=== PATIENT | female | born 1950 | race Caucasian/White ===

== ENCOUNTER 2017-01-13 17:47 | Inpatient (IN) ==
[2017-01-13] MEDS ORDERED: ONDANSETRON 4 MG/2 ML VIAL IV STA (20:17)
[2017-01-13] MEDS ORDERED: MORPHINE 2 MG/1 ML SYRINGE IV STA (20:17)
--- NOTE | 2017-01-13 20:24 | Emergency Department Note ---
Lazaro Jason Brittany, am scribing for, and in the presence of, Cristhian Orourke MD 18:58. Sharad Jason William S., MD, personally performed the services described in this documentation, ascribed by Mayra Willis in my presence, and it is both accurate and complete . Arrival - Arrival Chief Complaint: Shortness of Breath Stated Complaint: transfer from [facility] ED Nursing Triage Note: transferred from [facility] for further evaluation of lung mass with pneumonia. Mode of Arrival: Stretcher Limitations: No Limitations Source: Patient - History of Present Illness HPI Narrative: This is a 66 y/o white female, who presents to the ED by EMS for further evaluation of lung mass with pneumonia. She was transferred from [facility] for further evualtion. She states she was seen in [facility] for a cough and fever. She states she has been following up with Dr. Dunn for the past 2- 3 years. She reports she was seen here on 01/09 for the lung mass and was told it has not increased in size. She states she had a Chest Xray which showed obstructive pneumonia. She reports a fever and cough but denies vomiting. Pt has no other complaints/pain in the ED at this time. Pt has a PMHx of NIDDM, RA , HTN, Depression, seizures, dyslipidemia, thyroid disorder, COPD, pneumonia, asthma, bronchitis, OA, back/neck problems, and ovarian cysts. Pt has had an eye surgery, abd surgery, breast surgery, colonoscopy, EGD, tonsilectomy, gynecological Hx, hysterectomy, and tubal ligation. Pt has a family medical Hx of cancer, diabetes, and HTN. Pt is a former smoker. Consistency: constant Severity: moderate Allergies/Adverse Reactions: Allergies Allergy/AdvReac Type Severity Reaction Status Date / Time No Known Allergies Allergy Verified 04/19/15 07:14 Home Medications: Home Medications Medication Instructions Recorded Confirmed Type Amitriptyline HCl 50 mg PO BEDTIME 04/14/15 10/22/15 History Ferrous Sulfate [Iron] 325 mg PO TID 04/14/15 10/22/15 History Fluoxetine HCl 40 mg PO DAILY 04/14/15 10/22/15 History Furosemide Tab [Lasix Tab] 10 mg PO DAILY 04/14/15 10/22/15 History Hydrocodone/Acetaminophen 1 each PO PRN PRN 04/14/15 10/22/15 History [Hydrocodon-Acetaminophn 10-325] Ipratropium/Albuterol Inhaler 1 puff INH QID 04/14/15 10/22/15 History [Combivent Respimat Inhaler] Levothyroxine Tab [Synthroid Tab] 75 mcg PO DAILY 04/14/15 10/22/15 History Lovastatin 20 mg PO DAILY 04/14/15 10/22/15 History clonazePAM [Clonazepam] 1 mg PO DAILY 04/14/15 10/22/15 History glipiZIDE [Glipizide] 5 mg PO DAILY 04/14/15 10/22/15 History hydroCHLOROthiazide 12.5 mg PO DAILY 04/14/15 10/22/15 History [Hydrochlorothiazide] lamoTRIgine [Lamictal Xr] 50 mg PO BID 04/14/15 10/22/15 History Review of System - Review of System 12 point system: reviewed and no additional remarkable complaints except as stated - Review of System Constitutional: Present: fever Respiratory: Present: cough Gastrointestinal: Absent: vomiting Medical,Surgical,& Family Hx - Medical History Cardio: History of: Hypertension Psychological: History of: Depression Neurology: History of: Seizures Endocrine: History of: Diabetes Mellitus (NIDDM), Dyslipidemia, Thyroid Disorder Rheumatology: History of;: Rheumatoid Arthritis Respiratory: History of: Asthma, Bronchitis, COPD, Pneumonia, Respiratory Problems (broch prevoiusly) Musculoskeletal: History of: Back/Neck Problems (back pains), Osteoporosis Hematology: History of: Anemia, Bleeding Problems Reproductive: History of: Ovarian Cysts - Surgical History HEENT Surgeries: Surgical HX of: Eye Surgery (bilateral catarct surgery), Tonsilectomy & Adenoidectomy Abdominal Surgeries: Surgical HX of: Abdominal Surgery, Colonoscopy, EGD Reproductive Surgeries: Surgical HX of;: Breast Surgery (2 right breast biospies ), Gynecologic Surgery, Hysterectomy, Tubal Ligation - Family History Family History: Reports;: Family Cancer (2 sister), Family Diabetes (FATHER AND SISTER), Family Hypertension (FATHER) - Social History Smoking Status: Former smoker Exam Vital Signs: Vital Signs Temperature 97.6 F 01/13/17 18:41 Pulse Rate 90 01/13/17 18:41 Respiratory Rate 20 04/15/17 18:41 Blood Pressure 168/85 04/15/17 18:41 O2 Sat by Pulse Oximetry 97 01/13/17 17:50 Course - Reevaluation(s) Reevaluation #1: Patient remains stable at this time. She is given pain medication for complaints of pain in her chest for the pneumonia was located. She does relate that blood cultures were drawn at the other facility. She has not been hospitalized in over 6 months. Patient will be admitted to Dr. Bonner on the medicine service chart from the other facility is reviewed and all the lab data was noted on the transfer paperwork and therefore is not repeated at this time Time: 20:05 Disposition Clinical Impression: Community acquired pneumonia Case discussed with: patient Disposition: Still a Patient Condition: Stable Time of Disposition: 20:24
[2017-01-13] MEDS ORDERED: DEXTROSE 50% 25 GM/50 ML VIAL IV PRN (20:56)
[2017-01-13] MEDS ORDERED: GLUCAGON 1 MG VIAL IM PRN (20:56)
--- NOTE | 2017-01-13 21:10 | Hospitalist History & Physical ---
Assessment and Plan - Time spent with patient Time spent with patient: Greater than 30 minutes (1) Pneumonia Status: Acute Assessment and plan: We will repeat chest x-ray. We will continue Levaquin. Will consult pulmonary for further evaluation. Current Visit: Yes (2) Lung mass Status: Acute Assessment and plan: We will consult pulmonary. Patient does not exactly know the results of her tests and would like further clarification. Current Visit: Yes (3) Diabetes mellitus Status: Acute Assessment and plan: Continue home medications. Current Visit: Yes (4) Seizure disorder Status: Acute Assessment and plan: Continue home medications. Current Visit: Yes (5) COPD (chronic obstructive pulmonary disease) Status: Acute Assessment and plan: Continue antibiotics breathing treatments and Solu-Medrol. Current Visit: Yes (6) CHF (congestive heart failure) Status: Acute Assessment and plan: Stable continue home medications. Current Visit: Yes History of Present Illness Chief complaint: Shortness of breath and fever History of present illness: Ms. Fam is a 66 year old female with a medical history of lung mass with prior biopsy, diabetes, CHF, COPD was transferred from an outside facility for evaluation postobstructive pneumonia. Patient presented with shortness of breath cough productive in nature and fever which she had been experiencing for 3 nights. She states she presented to [facility] where she was found to have right-sided pneumonia and then transferred to [facility] for further evaluation. White blood cell count at the outside hospital was 12.2. Creatinine was 0.8. She is administered DuoNeb's Levaquin and Solu-Medrol. Currently she has no complaints and appears very comfortable. Patient had an evaluation of a lung mass previously with pathology report indicating only inflammatory cells. PET scan revealed no uptake at the area of the mass. Home Medications Medication Instructions Recorded Confirmed Type Amitriptyline HCl 50 mg PO BEDTIME 04/14/15 10/22/15 History Ferrous Sulfate [Iron] 325 mg PO TID 04/14/15 10/22/15 History Fluoxetine HCl 40 mg PO DAILY 04/14/15 10/22/15 History Furosemide Tab [Lasix Tab] 10 mg PO DAILY 04/14/15 10/22/15 History Hydrocodone/Acetaminophen 1 each PO PRN PRN 04/14/15 10/22/15 History [Hydrocodon-Acetaminophn 10-325] Ipratropium/Albuterol Inhaler 1 puff INH QID 04/14/15 10/22/15 History [Combivent Respimat Inhaler] Levothyroxine Tab [Synthroid Tab] 75 mcg PO DAILY 04/14/15 10/22/15 History Lovastatin 20 mg PO DAILY 04/14/15 10/22/15 History clonazePAM [Clonazepam] 1 mg PO DAILY 04/14/15 10/22/15 History glipiZIDE [Glipizide] 5 mg PO DAILY 04/14/15 10/22/15 History hydroCHLOROthiazide 12.5 mg PO DAILY 04/14/15 10/22/15 History [Hydrochlorothiazide] lamoTRIgine [Lamictal Xr] 50 mg PO BID 04/14/15 10/22/15 History Allergies Allergy/AdvReac Type Severity Reaction Status Date / Time No Known Allergies Allergy Verified 04/19/15 07:14 Medical,Surgical,& Family Hx - Medical History Cardio: History of: Hypertension Psychological: History of: Depression Neurology: History of: Seizures Endocrine: History of: Diabetes Mellitus (NIDDM), Dyslipidemia, Thyroid Disorder Rheumatology: History of;: Rheumatoid Arthritis Respiratory: History of: Asthma, Bronchitis, COPD, Pneumonia, Respiratory Problems (broch prevoiusly) Musculoskeletal: History of: Back/Neck Problems (back pains), Osteoporosis Hematology: History of: Anemia, Bleeding Problems Reproductive: History of: Ovarian Cysts - Surgical History HEENT Surgeries: Surgical HX of: Eye Surgery (bilateral catarct surgery), Tonsilectomy & Adenoidectomy Abdominal Surgeries: Surgical HX of: Abdominal Surgery, Colonoscopy, EGD Reproductive Surgeries: Surgical HX of;: Breast Surgery (2 right breast biospies ), Gynecologic Surgery, Hysterectomy, Tubal Ligation - Family History Family History: Reports;: Family Cancer (2 sister), Family Diabetes (FATHER AND SISTER), Family Hypertension (FATHER) - Social History Smoking Status: Former smoker 12 point system: reviewed and no additional remarkable complaints except as stated Exam - Constitutional Vitals: Period Temp Pulse Resp BP Sys/Guaman Pulse Ox Last 24 Hr 97.6 F-97.6 F 85-90 18-20 147-168/66-85 97-99 General appearance: normal weight, no acute distress - Head Head exam: Present: normal inspection, normocephalic, atraumatic - Eye Eye exam: Present: EOMI Pupils: Present: ERIK - ENT ENT exam: Present: normal exam - Neck Neck exam: Present: normal inspection - Respiratory Respiratory exam: Present: clear to auscultation bilaterally. Absent: accessory muscle use, prolonged expiratory phase, wheezes - Cardiovascular Cardiovascular exam: Present: regular rate and rhythm. Absent: bradycardia, carotid bruit, irregular rhythm, systolic murmur - GI/Abdominal GI/Abdominal exam: Present: normal bowel sounds. Absent: ascites, distended, hypoactive bowel sounds, tenderness - Extremities Exam Extremities exam: Present: normal inspection Results - Labs Lab Results: I have reviewed the past 24 hour labs
--- NOTE | 2017-01-13 21:17 | XRay Report ---
Portable chest Date: 01/13/2017 Clinical history: Shortness of breath Comparison: 01/13/2017, 04/19/2015 Technique: Portable AP sitting chest Findings: The heart is borderline in size with calcification in the aortic knob. Residual scarring with progressive atelectasis/infiltration in the right lower lung zone. Pleural thickening laterally in the right upper lobe with adjacent small nodular densities. Residual right hilar prominence with degenerative changes. Impression: Chronic scarring with residual pleural thickening laterally in the right upper lobe location. Persistent ill-defined densities. Progressive atelectasis/infiltration in the right lower lung zone with residual right hilar prominence. Follow-up x-ray recommended. PROCEDURE INTERPRETED AT [facility] DEPARTMENT OF RADIOLOGY Final Report Signed by: Dr. Malgorzata Canales
[2017-01-13] MEDS: methylPREDNISolone SOD SUC 40 MG/1 ML VIAL IV SCH (23:19)
[2017-01-13] MEDS: AMITRIPTYLINE 50 MG TABLET PO SCH (23:19)
[2017-01-13] MEDS: FERROUS SULFATE 325 MG TABLET PO SCH (23:19)
[2017-01-13] MEDS: INSULIN LISPRO 100 UNIT/ML SUBCUT SCH (23:19)
[2017-01-14] MEDS: LEVOTHYROXINE 75 MCG TABLET PO SCH (06:32)
[2017-01-14] MEDS: methylPREDNISolone SOD SUC 40 MG/1 ML VIAL IV SCH ×3 (06:32→21:28)
[2017-01-14 07:34] LABS: Basophils % 0.2 % (0.0-0.8); Hematocrit 34.3 VOL% (35.7-47.0); Hemoglobin 10.5 GM/DL (12.0-16.0); Immature Granulocytes % 0.5 %; Immature Granulocytes Absolute 0.06 #; Lymphocytes # 0.7 10*3/uL (1.4-4.0); Lymphocytes % 6.2 % (21.3-54.2); Mean Corpuscular HGB Conc 30.6 GM/DL (32-36); Mean Corpuscular Hemoglobin 24 PG (27-34); Mean Corpuscular Volume 76.9 FL (87-102); Mean Platelet Volume 11.1 FL (9.6-12.0); Monocytes # 0.7 10*3/uL (0.11-0.8); Monocytes % 6.4 % (1.7-12.7); Neutrophils # 9.7 10*3/uL (1.4-7.4); Neutrophils % 86.7 % (38.7-73.9); Platelet Count 168 T/CUMM (130-400); Red Blood Count 4.46 MC/CUMM (3.8-5.5); Red Cell Distribution Width 15.9 % (9.3-17.3); White Blood Count 11.1 T/CUMM (4-12)
[2017-01-14 08:06] LABS: Albumin 3.3 G/DL (3.4-5.0); Bilirubin,Total 0.7 MG/DL (0.2-1.0); Osmolality,Calculated 267.2 MOS/KG (273-304); Potassium 3.6 MMOL/L (3.5-5.1); Total Protein 6.3 G/DL (6.4-8.3)
[2017-01-14 08:26] LABS: Hypochromasia Slight
[2017-01-14] MEDS ORDERED: clonazePAM 0.5 MG TABLET PO SCH (09:00)
[2017-01-14] MEDS ORDERED: LOVASTATIN 20 MG TABLET PO SCH (09:00)
--- NOTE | 2017-01-14 09:33 | XRay Report ---
Portable chest Date: 01/14/2017 Clinical history: Shortness of breath Comparison: 01/13/2017 Technique: Portable AP sitting chest Findings: The heart is minimally enlarged with calcification in the aortic knob. Chronic scarring with residual pleural thickening laterally in the right upper lung zone. Persistent ill-defined densities are noted especially in the right upper lobe and the lower lung zones. Minimally reduced parenchymal findings at the right lung base. Stable mediastinum and osseous structures. Impression: Chronic scarring with residual pleural thickening laterally in the right upper lobe location. Minimally reduced atelectasis/infiltration/edema at the right lung base. Persistent ill-defined indeterminate densities and follow-up is chest x-ray is recommended. PROCEDURE INTERPRETED AT [facility] DEPARTMENT OF RADIOLOGY Final Report Signed by: Dr. Malgorzata Canales
[2017-01-14] MEDS: FERROUS SULFATE 325 MG TABLET PO SCH ×3 (09:39→21:28)
[2017-01-14] MEDS: FUROSEMIDE 20 MG TABLET PO SCH (09:40)
[2017-01-14] MEDS: glipiZIDE 5 MG TABLET PO SCH (09:40)
[2017-01-14] MEDS: LEVOFLOXACIN INJ 750 MG in PREMIX 1 EACH IV SCH (09:46)
--- NOTE | 2017-01-14 10:12 | Hospitalist Progress Note ---
Assessment and Plan - Time spent with patient Time spent with patient: Greater than 30 minutes (1) Pneumonia Status: Acute Assessment and plan: Appreciate Pulms assistance. Current Visit: Yes (2) Lung mass Status: Acute Assessment and plan: We will consult pulmonary. Patient does not exactly know the results of her tests and would like further clarification. Current Visit: Yes (3) Diabetes mellitus Status: Acute Assessment and plan: Continue home medications. Current Visit: Yes (4) Seizure disorder Status: Acute Assessment and plan: Continue home medications. Current Visit: Yes (5) COPD (chronic obstructive pulmonary disease) Status: Acute Assessment and plan: Continue antibiotics breathing treatments and Solu-Medrol. Current Visit: Yes (6) CHF (congestive heart failure) Status: Acute Assessment and plan: Stable continue home medications. Current Visit: Yes (7) Epigastric pain Status: Acute Assessment and plan: RUQ, amylase, lipase, cons GI. Current Visit: Yes Hospitalist: Subjective Interval history: Complains of early satiety. Has epigastric pain that radiates to the back. Exam - Constitutional Vitals: Period Temp Pulse Resp BP Sys/Guaman Pulse Ox Last 24 Hr 97.5 F-99.2 F 72-83 18-22 148-167/73-81 97-100 General appearance: no acute distress - Head Head exam: Present: normocephalic, atraumatic - Eye Eye exam: Present: EOMI Pupils: Present: ERIK - ENT ENT exam: Present: normal exam - Neck Neck exam: Present: normal inspection - Respiratory Respiratory exam: Present: wheezes. Absent: rhonchi - Cardiovascular Cardiovascular exam: Present: regular rate and rhythm. Absent: gallop, rubs, systolic murmur - GI/Abdominal GI/Abdominal exam: Present: normal bowel sounds, soft. Absent: distended, firm , guarding, tenderness, rebound - Extremities Exam Extremities exam: Present: normal inspection. Absent: calf tenderness, edema Results - Labs CBC & BMP: 01/14/17 06:19 01/14/17 06:19 Lab Results: I have reviewed the past 24 hour labs
--- NOTE | 2017-01-14 10:15 | Pulmonology Consult Note ---
Assessment and Plan (1) COPD (chronic obstructive pulmonary disease) Status: Acute Assessment and plan: Patient appears to be having a mild COPD exacerbation. I do not think her radiographic findings are consistent with pneumonia. She likely has bronchitis and a slight exacerbation. Would start on steroids and duonebs and consider an antibiotic like Doxycycline for 7 days. This may have been brought on by a viral illness vs aspiration from her hernia Current Visit: Yes (2) Mediastinal lymphadenopathy Status: Acute Assessment and plan: Patient with enlarged LN, she underwent a bronchoscopy 2 years which was benign. There is no reported growth in the last 2 years. If there is any concern over this, it would be best accessed by EBUS which is not available at this facility. Dr Dunn will return tomorrow and can follow up as needed Current Visit: Yes (3) Hiatal hernia Status: Acute Assessment and plan: Patient with notable hiatal hernia on CT scan. She appears to be quite symptomatic from this given her report of trouble swallowing and early satiety. Needs to have Gi consult (can be done as outpatient) and repeated EGD. If she is having microaspiration from reflux secondary to this, it will make her COPD worse. Should be on a PPI in the meantime. Current Visit: Yes History of Present Illness History of present illness: Ms. Fam is a 66 year old female who is followed by Dr Dunn (pulmonary) for enlarged mediastinal LN. She reports that she saw Dr Dunn on the and he told her she had 2 years of stability on her CT scan and didn't need to follow up on this anymore. She also reports having COPD. A few days after that she developed fever, and went to the ER at her local hospital. They transferred her here for evaluation of the previous mentioned LN (which is sounds like was interpreted as a mass?). Otherwise patient endorses having some productive cough the last 2 days as well. Patient also complains of trouble swallowing with foods, liquids and pills. She endorses early satiety as well. She is aware she has a hiatal hernia, and was followed by a GI doctor in [facility] a few years ago. Her last EGD was 2 years ago Home Medications Medication Instructions Recorded Confirmed Type Amitriptyline HCl 50 mg PO BEDTIME 04/14/15 01/13/17 History Hydrocodone/Acetaminophen 1 each PO PRN PRN 04/14/15 01/13/17 History [Hydrocodon-Acetaminophn 10-325] Ipratropium/Albuterol Inhaler 1 puff INH QID 04/14/15 01/13/17 History [Combivent Respimat Inhaler] Levothyroxine Tab [Synthroid Tab] 100 mcg PO DAILY 04/14/15 01/13/17 History Lovastatin 20 mg PO BEDTIME 04/14/15 01/13/17 History glipiZIDE [Glipizide] 5 mg PO DAILY 04/14/15 01/13/17 History lamoTRIgine [Lamictal Xr] 50 mg PO BID 04/14/15 01/13/17 History Fluoxetine HCl [Prozac] 40 mg PO DAILY 01/13/17 01/13/17 History Lurasidone [Latuda] 40 mg PO BEDTIME 01/13/17 01/13/17 History Phenytoin ER Cap [Dilantin Cap] 100 mg PO TID 01/13/17 01/13/17 History Potassium Chloride [Klor-Con 10 meq PO BID 01/13/17 01/13/17 History Sprinkle] Topiramate [Topamax] 25 mg PO BEDTIME 01/13/17 01/13/17 History hydroCHLOROthiazide 25 mg PO DAILY 01/13/17 01/13/17 History [Hydrochlorothiazide] clonazePAM [Klonopin] 1 mg PO BEDTIME 01/14/17 01/14/17 History Allergies Allergy/AdvReac Type Severity Reaction Status Date / Time No Known Allergies Allergy Verified 04/19/15 07:14 Review of systems: Negative for 12 systems except her HPI Exam (Pulmonay) H&P - Constitutional Vitals: Period Temp Pulse Resp BP Sys/Guaman Pulse Ox Last 24 Hr 97.5 F-99.2 F 72-83 18-22 148-167/73-81 97-100 General appearance: no acute distress, cachectic - Head Head exam: Present: normal inspection - Respiratory Respiratory exam: Present: wheezes. Absent: accessory muscle use - Cardiovascular Cardiovascular exam: Present: regular rate and rhythm - GI/Abdominal GI/Abdominal exam: Present: normal bowel sounds Medical,Surgical,& Family Hx - Medical History Cardio: History of: Hypertension Psychological: History of: Depression Neurology: History of: Seizures HEENT: Comment Only: HEENT Problems (hx sinus surg.) Endocrine: History of: Diabetes Mellitus (NIDDM), Dyslipidemia, Thyroid Disorder Rheumatology: History of;: Rheumatoid Arthritis Respiratory: History of: Asthma, Bronchitis, COPD, Pneumonia, Respiratory Problems (bronch prevoiusly) Gastrointestinal: History of: Diverticulitis/ Diverticulosis, Hemorrhoids Musculoskeletal: History of: Back/Neck Problems (back pains), Osteoporosis Hematology: History of: Anemia, Bleeding Problems Reproductive: History of: Ovarian Cysts - Surgical History HEENT Surgeries: Surgical HX of: Eye Surgery (bilateral catarct surgery), Tonsilectomy & Adenoidectomy Abdominal Surgeries: Surgical HX of: Abdominal Surgery, Colonoscopy, EGD Reproductive Surgeries: Surgical HX of;: Breast Surgery (2 right breast biospies ), Gynecologic Surgery, Hysterectomy, Tubal Ligation - Family History Family History: Reports;: Family Cancer (2 sister), Family Diabetes (FATHER AND SISTER), Family Hypertension (FATHER) - Social History Smoking Status: Former smoker Frequency of Alcohol Use: None Type of Drug Use: None Results - Labs CBC & BMP: 01/14/17 06:19 01/14/17 06:19 Lab Results: I have reviewed the past 24 hour labs - Diagnostic Findings Procedure: Chest x-ray: image reviewed by me, CT - chest: image reviewed by me
[2017-01-14] MEDS: INSULIN LISPRO 100 UNIT/ML SUBCUT SCH ×3 (14:32→19:34)
[2017-01-14] MEDS: lamoTRIgine 25 MG TABLET PO SCH (21:28)
[2017-01-14] MEDS: AMITRIPTYLINE 50 MG TABLET PO SCH (21:28)
[2017-01-14] MEDS: PHENYTOIN ER 100 MG CAPSULE PO SCH (21:28)
[2017-01-14] MEDS: POTASSIUM CHLORIDE 10 MEQ TABLET PO SCH (21:28)
[2017-01-14] MEDS: clonazePAM 0.5 MG TABLET PO SCH (21:28)
[2017-01-14] MEDS: LOVASTATIN 20 MG TABLET PO SCH (21:28)
[2017-01-15] MEDS: LEVOTHYROXINE 75 MCG TABLET PO SCH (06:48)
[2017-01-15] MEDS: methylPREDNISolone SOD SUC 40 MG/1 ML VIAL IV SCH ×3 (07:01→23:20)
[2017-01-15] MEDS: INSULIN LISPRO 100 UNIT/ML SUBCUT SCH ×5 (07:16→20:57)
--- NOTE | 2017-01-15 07:37 | Pulmonology Progress Note ---
Pulmonary - PN: Subj Interval history: This 66-year-old white female had the acute onset of fever cough congestion and nausea about 4 or 5 days ago. I had seen her in the office 6 days ago for follow-up of a right hilar lymph node with pulmonary opacities. We have followed these for right hip [address] She had a bronchoscope as well as a PET scan in 2015 and both were negative. The lymph node has not grown over 2 years. The nonspecific pulmonary opacities have not changed and are felt to be scar from previous infectious processes. Patient has a hiatal hernia and has had some vomiting. Certainly there is a chance she may be having some microaspiration. At present she has acute bronchitis. We need to get that doing a little better before considering gastroscope. Exam (Progress Note) - Constitutional Vitals: Period Temp Pulse Resp BP Sys/Guaman Pulse Ox Last 24 Hr 97.7 F-99.2 F 74-93 18-20 146-193/81-88 95-100 Exam: Patient's alert oriented vital signs normal. Pupils react to light. Throat is clear. Neck supple no bruits. Chest reveals expiratory wheezes bilaterally. Heart normal rate rhythm no murmurs. Abdomen soft nontender no masses. Extremities no clubbing cyanosis or edema. Calves nontender. Results - Labs CBC & BMP: 01/14/17 06:19 01/14/17 06:19 Lab Results: I have reviewed the past 24 hour labs - Diagnostic Findings Procedure: Chest x-ray: image reviewed by me (Linear scar right upper lobe as before. No acute infiltrate.) Assessment and Plan (1) COPD with acute exacerbation Status: Acute Assessment and plan: Needs steroids bronchodilators and antibiotics. Need to get this tuned up before getting sedation for gastroscope. Current Visit: Yes (2) Acute bronchitis Status: Acute Assessment and plan: I do not see anything that would qualify as pneumonia on her x-ray. Treatment with Levaquin should suffice. Current Visit: Yes (3) Mediastinal lymphadenopathy Status: Acute Assessment and plan: As a right paratracheal node that is a little less than 2 cm in diameter. It has not changed in 2 years. It was negative on PET scan 2 years ago. This is benign. May be old granulomatous disease. Impossible to site radiographically. No reason to biopsy it since it is not enlarging. Current Visit: Yes (4) Hiatal hernia Status: Acute Assessment and plan: She had some fullness nausea and vomiting difficulty swallowing. Needs to be assessed for possible esophageal stricture. Agree with treating her for reflux. Could be having some microaspiration. Would like to wait until bronchospasm is better before sedation for gastroscope. Current Visit: Yes
[2017-01-15] MEDS: PHENYTOIN ER 100 MG CAPSULE PO SCH ×3 (08:36→20:59)
[2017-01-15] MEDS: FUROSEMIDE 20 MG TABLET PO SCH (08:36)
[2017-01-15] MEDS: FERROUS SULFATE 325 MG TABLET PO SCH ×3 (08:37→20:58)
[2017-01-15] MEDS: glipiZIDE 5 MG TABLET PO SCH (08:37)
[2017-01-15] MEDS: POTASSIUM CHLORIDE 10 MEQ TABLET PO SCH ×2 (08:37→20:59)
[2017-01-15] MEDS: PANTOPRAZOLE 40 MG TABLET PO SCH (08:38)
[2017-01-15] MEDS: LEVOFLOXACIN INJ 750 MG in PREMIX 1 EACH IV SCH (08:38)
[2017-01-15] MEDS: lamoTRIgine 25 MG TABLET PO SCH ×2 (08:43→20:59)
--- NOTE | 2017-01-15 08:50 | Ultrasound Report ---
Right upper quadrant ultrasound Indication: Abdominal Pain Findings: The liver is normal in size and echogenicity. The gallbladder is fluid-filled without evidence of stones or sludge. The gallbladder wall thickness is 2.0 mm . The common bile duct measures 6.0 mm. The visualized portion of the pancreas appear within normal limits The right kidney is normal in size and echogenicity and measures 10.4 cm . No free fluid or free air seen. Impression: No evidence of abnormality demonstrated. Ultrasound images stored and captured. PROCEDURE INTERPRETED AT [facility] DEPARTMENT OF RADIOLOGY Final Report Signed by: Dr. Olegario Becker
--- NOTE | 2017-01-15 12:15 | Hospitalist Progress Note ---
Assessment and Plan - Time spent with patient Time spent with patient: Greater than 30 minutes (1) Pneumonia Status: Acute Assessment and plan: Appreciate Pulms assistance. Current Visit: Yes (2) Lung mass Status: Acute Assessment and plan: Appreciate consultation from pulmonary. Does not appear to be cancer at this point. Pulmonary has been following this for the last 2 years. Current Visit: Yes (3) Diabetes mellitus Status: Acute Assessment and plan: Continue home medications. Current Visit: Yes (4) Seizure disorder Status: Acute Assessment and plan: Continue home medications. Current Visit: Yes (5) COPD (chronic obstructive pulmonary disease) Status: Acute Assessment and plan: Continue antibiotics breathing treatments and Solu-Medrol. Current Visit: Yes (6) CHF (congestive heart failure) Status: Acute Assessment and plan: Stable continue home medications. Current Visit: Yes (7) Epigastric pain Status: Acute Assessment and plan: RUQ, amylase, lipase normal. Consult has been placed GI. Current Visit: Yes Hospitalist: Subjective Interval history: No complaints, no overnight events. Exam - Constitutional Vitals: Period Temp Pulse Resp BP Sys/Guaman Pulse Ox Last 24 Hr 97.7 F-98.6 F 74-93 18-20 146-193/82-88 95-100 General appearance: no acute distress - Head Head exam: Present: normocephalic, atraumatic - Eye Eye exam: Present: EOMI Pupils: Present: ERIK - ENT ENT exam: Present: normal exam - Neck Neck exam: Present: normal inspection - Respiratory Respiratory exam: Present: prolonged expiratory phase, wheezes. Absent: rhonchi - Cardiovascular Cardiovascular exam: Present: regular rate and rhythm. Absent: gallop, rubs, systolic murmur - GI/Abdominal GI/Abdominal exam: Present: normal bowel sounds, soft. Absent: distended, firm , guarding, tenderness, rebound - Extremities Exam Extremities exam: Present: normal inspection. Absent: calf tenderness, edema Results - Labs CBC & BMP: 01/14/17 06:19 01/14/17 06:19 Lab Results: I have reviewed the past 24 hour labs
[2017-01-15] MEDS: LURASIDONE 40 MG TABLET PO SCH (12:39)
--- NOTE | 2017-01-15 13:26 | Gastrointestinal Consult Note ---
Addendum entered and electronically signed by Josiane George FNP 01/15/17 14:24: Postpone EGD until pulmonary feels okay to proceed Original Note: <Josiane George - Last Filed: 01/15/17 13:22> Assessment and Plan (1) Epigastric pain Status: Acute Assessment and plan: 01/15-several month history of difficulty swallowing liquids, pills, and solids with worsening over the last several weeks. History of reflux. Denies odynophagia. History of heavy NSAID use as well as peptic ulcer disease in the past. Last endoscopy 2 years ago in [place]. Obtain records from Dr. Coffman regarding colonoscopy and EGD. Continue PPI. Plan for tentative EGD tomorrow if patient remains stable. Plan an addendum to follow by Dr. Ledesma. Current Visit: Yes History of Present Illness Chief complaint: Epigastric pain History of present illness: Ms. Fam is a 66 year old female who was admitted to the hospital on 01/13 with onset of shortness of breath and fever. Patient has a prior history of diabetes, CHF, COPD with lung mass. She was initially seen at [facility] general was transferred to our facility for further evaluation. Patient is currently being followed by pulmonology at the present time. She was found to have acute bronchitis with COPD exacerbation. Patient brought forth on admission that she has had any increasing difficulty with swallowing over the last several weeks. Patient states that she is having difficulty swallowing liquids, pills, and solids and is having early satiety. She states that at times she does choke when drinking liquids. Patient has a history of this and has been seen by Dr. Coffman in the past with upper and lower endoscopy reported 2 years ago [place]. She recalls having a Houde hernia on her upper scope and she did have a polyp removed on her lower scope and told to return in 3 years. Patient denies any nausea or vomiting. Denies any melena or hematochezia. She has had weight loss of 30 pounds over the last several months but states this is related to several of her health issues. She denies any pain with swallowing. She has a history of reflux and takes OTC PPIs as needed. Patient denies any history of gallbladder disease but states she has a strong family history of this. She had an abdominal ultrasound done which was negative for any acute findings. Denies history of alcohol use. Lipase unremarkable. Hemoglobin 10.5. Patient does report a history of anemia in the past with IV iron treatment as well as oral iron treatment but states she has not taken iron in " a while ". She was seen by Dr. Reilly in the past for this on a one-time basis. patient states she does have a history of bleeding ulcers in the past due to heavy NSAID use. She states that she does take 6 Aleve a day as well as 1-2 BCs sometimes every day and has done this for several years due to general aches and pains. She does report that she did have prior endoscopy done at [place] with Dr. Rowe. Home Medications Medication Instructions Recorded Confirmed Type Amitriptyline HCl 50 mg PO BEDTIME 04/14/15 01/13/17 History Hydrocodone/Acetaminophen 1 each PO PRN PRN 04/14/15 01/13/17 History [Hydrocodon-Acetaminophn 10-325] Ipratropium/Albuterol Inhaler 1 puff INH QID 04/14/15 01/13/17 History [Combivent Respimat Inhaler] Levothyroxine Tab [Synthroid Tab] 100 mcg PO DAILY 04/14/15 01/13/17 History Lovastatin 20 mg PO BEDTIME 04/14/15 01/13/17 History glipiZIDE [Glipizide] 5 mg PO DAILY 04/14/15 01/13/17 History lamoTRIgine [Lamictal Xr] 50 mg PO BID 04/14/15 01/13/17 History Fluoxetine HCl [Prozac] 40 mg PO DAILY 01/13/17 01/13/17 History Lurasidone [Latuda] 40 mg PO BEDTIME 01/13/17 01/13/17 History Phenytoin ER Cap [Dilantin Cap] 100 mg PO TID 01/13/17 01/13/17 History Potassium Chloride [Klor-Con 10 meq PO BID 01/13/17 01/13/17 History Sprinkle] Topiramate [Topamax] 25 mg PO BEDTIME 01/13/17 01/13/17 History hydroCHLOROthiazide 25 mg PO DAILY 01/13/17 01/13/17 History [Hydrochlorothiazide] clonazePAM [Klonopin] 1 mg PO BEDTIME 01/14/17 01/14/17 History Allergies Allergy/AdvReac Type Severity Reaction Status Date / Time No Known Allergies Allergy Verified 04/19/15 07:14 Medical,Surgical,& Family Hx - Medical History Cardio: History of: Hypertension Psychological: History of: Depression Neurology: History of: Seizures HEENT: Comment Only: HEENT Problems (hx sinus surg.) Endocrine: History of: Diabetes Mellitus (NIDDM), Dyslipidemia, Thyroid Disorder Rheumatology: History of;: Rheumatoid Arthritis Respiratory: History of: Asthma, Bronchitis, COPD, Pneumonia, Respiratory Problems (bronch prevoiusly) Gastrointestinal: History of: Diverticulitis/ Diverticulosis, Hemorrhoids Musculoskeletal: History of: Back/Neck Problems (back pains), Osteoporosis Hematology: History of: Anemia, Bleeding Problems Reproductive: History of: Ovarian Cysts - Surgical History HEENT Surgeries: Surgical HX of: Eye Surgery (bilateral catarct surgery), Tonsilectomy & Adenoidectomy Abdominal Surgeries: Surgical HX of: Abdominal Surgery, Colonoscopy, EGD Reproductive Surgeries: Surgical HX of;: Breast Surgery (2 right breast biospies ), Gynecologic Surgery, Hysterectomy, Tubal Ligation - Family History Family History: Reports;: Family Cancer (2 sister), Family Diabetes (FATHER AND SISTER), Family Hypertension (FATHER) - Social History Smoking Status: Former smoker Frequency of Alcohol Use: None Type of Drug Use: None 12 point system: reviewed and no additional remarkable complaints except as stated - Constitutional Constitutional: Present: as per HPI, weight loss - EENT Eyes: Present: as per HPI Ears: Present: as per HPI Nose, mouth and throat: Present: as per HPI, dysphagia - Cardiovascular Cardiovascular: Present: as per HPI - Respiratory Respiratory: Present: as per HPI - Gastrointestinal Gastrointestinal: Present: as per HPI, abdominal pain, dyspepsia, dysphagia, early satiety, heartburn - Genitourinary Genitourinary: Present: as per HPI - Musculoskeletal Musculoskeletal: Present: as per HPI, arthralgias - Neurological Neurological: Present: as per HPI - Psychiatric Psychiatric: Present: as per HPI - Endocrine Endocrine: Present: as per HPI - Hematologic/Lymphatic Hematologic/Lymphatic: Present: as per HPI Exam - Constitutional Vitals: Period Temp Pulse Resp BP Sys/Guaman Pulse Ox Last 24 Hr 97.3 F-98.6 F 73-93 18-20 146-193/79-88 95-100 General appearance: no acute distress, under weight - Head Head exam: Present: normal inspection, normocephalic - Eye Eye exam: Present: other (Lids and conjunctivae unremarked). Absent: scleral icterus - ENT ENT exam: Present: normal exam, normal oropharynx - Neck Neck exam: Present: normal inspection - Respiratory Respiratory exam: Present: clear to auscultation bilaterally. Absent: rales, rhonchi, wheezes - Cardiovascular Cardiovascular exam: Present: regular rate and rhythm. Absent: diastolic murmur , JVD, systolic murmur - GI/Abdominal GI/Abdominal exam: Present: normal bowel sounds, tenderness, soft. Absent: ascites, distended, mass, organomegaly - Back Exam Back exam: Present: normal inspection - Neurological Exam Neurological exam: Present: alert, oriented X3 - Psychiatric Psychiatric exam: Present: normal affect, normal mood - Skin Skin exam: Present: warm, dry, pallor Results - Labs CBC & BMP: 01/14/17 06:19 01/14/17 06:19 Lab Results: I have reviewed the past 24 hour labs <Sarwat Ledesma Angel - Last Filed: 01/15/17 17:21> History of Present Illness History of present illness: Ms. Fam is a 66 year old female Exam - Constitutional Vitals: Period Temp Pulse Resp BP Sys/Guaman Pulse Ox Last 24 Hr 96.9 F-98.6 F 73-84 18-20 146-193/79-88 92-100 Results - Labs CBC & BMP: 01/14/17 06:19 01/14/17 06:19
[2017-01-15] MEDS: clonazePAM 0.5 MG TABLET PO SCH (20:58)
[2017-01-15] MEDS: LOVASTATIN 20 MG TABLET PO SCH (20:59)
[2017-01-15] MEDS: AMITRIPTYLINE 50 MG TABLET PO SCH (20:59)
[2017-01-16 05:02] LABS: Basophils % 0.1 % (0.0-0.8); Hematocrit 34.4 VOL% (35.7-47.0); Hemoglobin 10.4 GM/DL (12.0-16.0); Immature Granulocytes % 0.8 %; Immature Granulocytes Absolute 0.06 #; Lymphocytes # 0.8 10*3/uL (1.4-4.0); Lymphocytes % 9.6 % (21.3-54.2); Mean Corpuscular HGB Conc 30.2 GM/DL (32-36); Mean Corpuscular Hemoglobin 23 PG (27-34); Mean Corpuscular Volume 77.1 FL (87-102); Monocytes # 0.5 10*3/uL (0.11-0.8); Monocytes % 6.1 % (1.7-12.7); Neutrophils # 6.7 10*3/uL (1.4-7.4); Neutrophils % 83.4 % (38.7-73.9); Platelet Count 228 T/CUMM (130-400); Red Blood Count 4.46 MC/CUMM (3.8-5.5)
[2017-01-16] MEDS: methylPREDNISolone SOD SUC 40 MG/1 ML VIAL IV SCH ×3 (05:23→21:41)
[2017-01-16 05:39] LABS: Calcium 8.8 MG/DL (8.5-10.1); Osmolality,Calculated 283.4 MOS/KG (273-304)
[2017-01-16] MEDS: LEVOTHYROXINE 75 MCG TABLET PO SCH (07:26)
--- NOTE | 2017-01-16 08:13 | Pulmonology Progress Note ---
Pulmonary - PN: Subj Interval history: This 66-year-old white female had the acute onset of fever cough congestion and nausea about 4 or 5 days ago. I had seen her in the office 6 days ago for follow-up of a right hilar lymph node with pulmonary opacities. We have followed these for right hip [address]. She had a bronchoscope as well as a PET scan in 2015 and both were negative. The lymph node has not grown over 2 years. The nonspecific pulmonary opacities have not changed and are felt to be scar from previous infectious processes. Patient has a hiatal hernia and has had some vomiting. Certainly there is a chance she may be having some microaspiration. At present she has acute bronchitis. We need to get that doing a little better before considering gastroscope. 01/16/2017 patient is feeling better this morning. Less wheezing. Her BNP is elevated at 291. Will check echocardiogram. Bump with Lasix. She is set up for gastroscope this morning. Exam (Progress Note) - Constitutional Vitals: Period Temp Pulse Resp BP Sys/Guaman Pulse Ox Last 24 Hr 96.9 F-98.4 F 73-83 18-21 137-185/78-85 92-100 Exam: Patient's alert oriented vital signs normal. Pupils react to light. Throat is clear. Neck supple no bruits. Chest reveals minimal expiratory wheezes bilaterally. Heart normal rate rhythm no murmurs. Abdomen soft nontender no masses. Extremities no clubbing cyanosis or edema. Calves nontender. Results - Labs CBC & BMP: 01/16/17 04:49 01/16/17 04:49 Lab Results: I have reviewed the past 24 hour labs Assessment and Plan (1) COPD with acute exacerbation Status: Acute Assessment and plan: Needs steroids bronchodilators and antibiotics. Need to get this tuned up before getting sedation for gastroscope. 01/16/2017 COPD is improved. Some of wheezing may be due to congestive heart failure. Current Visit: Yes (2) Acute bronchitis Status: Acute Assessment and plan: I do not see anything that would qualify as pneumonia on her x-ray. Treatment with Levaquin should suffice. 01/16/2017 continuing antibiotics and low-dose steroids for now. Continuing bronchodilators. Current Visit: Yes (3) Mediastinal lymphadenopathy Status: Acute Assessment and plan: As a right paratracheal node that is a little less than 2 cm in diameter. It has not changed in 2 years. It was negative on PET scan 2 years ago. This is benign. May be old granulomatous disease. Impossible to site radiographically. No reason to biopsy it since it is not enlarging. 01/16/2017 this is stable and does not require further evaluation. Current Visit: Yes (4) Hiatal hernia Status: Acute Assessment and plan: She had some fullness nausea and vomiting difficulty swallowing. Needs to be assessed for possible esophageal stricture. Agree with treating her for reflux. Could be having some microaspiration. Would like to wait until bronchospasm is better before sedation for gastroscope. 01/16/2017 patient is for gastroscope today to evaluate difficulty swallowing and questionable history of recurrent aspiration. Current Visit: Yes
[2017-01-16] MEDS: INSULIN LISPRO 100 UNIT/ML SUBCUT SCH ×4 (08:48→20:53)
[2017-01-16] MEDS: lamoTRIgine 25 MG TABLET PO SCH ×2 (08:49→20:43)
[2017-01-16] MEDS: PHENYTOIN ER 100 MG CAPSULE PO SCH ×3 (08:49→20:43)
[2017-01-16] MEDS: PANTOPRAZOLE 40 MG TABLET PO SCH (08:49)
[2017-01-16] MEDS: glipiZIDE 5 MG TABLET PO SCH (08:49)
[2017-01-16] MEDS: FUROSEMIDE 20 MG TABLET PO SCH (08:50)
[2017-01-16] MEDS: FERROUS SULFATE 325 MG TABLET PO SCH ×3 (08:50→20:43)
[2017-01-16] MEDS: POTASSIUM CHLORIDE 10 MEQ TABLET PO SCH ×2 (08:50→20:43)
[2017-01-16] MEDS: LEVOFLOXACIN INJ 750 MG in PREMIX 1 EACH IV SCH (08:50)
[2017-01-16] MEDS ORDERED: FUROSEMIDE 40 MG/4 ML VIAL IV ONE (09:00)
--- NOTE | 2017-01-16 10:35 | Gastrointestinal Progress Note ---
<Josiane George - Last Filed: 01/16/17 10:33> Assessment and Plan (1) Epigastric pain Status: Acute Assessment and plan: 01/16-No changes at present. EGD postponed until able to proceed from resp standpoint. Plan and addendum to follow by DR Ledesma. 01/15-several month history of difficulty swallowing liquids, pills, and solids with worsening over the last several weeks. History of reflux. Denies odynophagia. History of heavy NSAID use as well as peptic ulcer disease in the past. Last endoscopy 2 years ago in [place]. Obtain records from Dr. Coffman regarding colonoscopy and EGD. Continue PPI. Plan for tentative EGD tomorrow if patient remains stable. Plan an addendum to follow by Dr. Ledesma. Current Visit: Yes Gastroenterology - PN: Subj Interval history: CC: Epigastric pain Pt is seen awake and alert ambulating around room. States she is feeling the same today. She has been held NPO since last night despite the order being cancelled for EGD today. Will order her a diet this morning. BNP is elevated today. Abdomen is soft, nontender. We will continue to monitor at this time and proceed with EGD when Dr Dunn feels it is safe to proceed. ROS: Denies SOB or chest pain Exam (Progress Note) - Constitutional Vitals: Period Temp Pulse Resp BP Sys/Guaman Pulse Ox Last 24 Hr 96.9 F-98.4 F 72-83 18-21 137-185/78-85 92-100 General appearance: normal weight, no acute distress - Head Head exam: Present: normal inspection, normocephalic - Eye Eye exam: Present: other (lids and conjunctiva unremarkable). Absent: scleral icterus - ENT ENT exam: Present: normal exam, normal oropharynx - Neck Neck exam: Present: normal inspection - Respiratory Respiratory exam: Present: clear to auscultation bilaterally. Absent: rales, rhonchi, wheezes - Cardiovascular Cardiovascular exam: Present: regular rate and rhythm. Absent: diastolic murmur , JVD, systolic murmur - GI/Abdominal GI/Abdominal exam: Present: normal bowel sounds, soft. Absent: ascites, distended, mass, organomegaly, tenderness - Extremities Exam Extremities exam: Present: normal inspection, full ROM - Back Exam Back exam: Present: normal inspection - Neurological Exam Neurological exam: Present: alert, oriented X3 - Psychiatric Psychiatric exam: Present: normal affect, normal mood - Skin Skin exam: Present: normal color, warm, dry Results - Labs CBC & BMP: 01/16/17 04:49 01/16/17 04:49 Lab Results: I have reviewed the past 24 hour labs <Sarwat Ledesma - Last Filed: 01/16/17 10:56> Exam (Progress Note) - Constitutional Vitals: Period Temp Pulse Resp BP Sys/Guaman Pulse Ox Last 24 Hr 96.9 F-98.4 F 72-83 18-21 137-185/78-85 92-100 Results - Labs CBC & BMP: 01/16/17 04:49 01/16/17 04:49
[2017-01-16] MEDS: LURASIDONE 40 MG TABLET PO SCH (11:47)
--- NOTE | 2017-01-16 12:28 | Hospitalist Progress Note ---
Assessment and Plan - Time spent with patient Time spent with patient: Greater than 30 minutes (1) Pneumonia Status: Acute Assessment and plan: Appreciate Pulms assistance. Current Visit: Yes (2) Lung mass Status: Acute Assessment and plan: Defer to Pulm. Current Visit: Yes (3) Diabetes mellitus Status: Acute Assessment and plan: Continue home medications. Current Visit: Yes (4) Seizure disorder Status: Acute Assessment and plan: Continue home medications. Current Visit: Yes (5) COPD (chronic obstructive pulmonary disease) Status: Acute Assessment and plan: Continue antibiotics breathing treatments and Solu-Medrol. Current Visit: Yes (6) CHF (congestive heart failure) Status: Acute Assessment and plan: Stable continue home medications. Current Visit: Yes (7) Epigastric pain Status: Acute Assessment and plan: EGD today. Current Visit: Yes Hospitalist: Subjective Interval history: No complaints, no overnight events. Exam - Constitutional Vitals: Period Temp Pulse Resp BP Sys/Guaman Pulse Ox Last 24 Hr 96.9 F-98.4 F 72-83 18-21 137-185/78-85 92-100 General appearance: no acute distress - Head Head exam: Present: normocephalic, atraumatic - Eye Eye exam: Present: EOMI Pupils: Present: ERIK - ENT ENT exam: Present: normal exam - Neck Neck exam: Present: normal inspection - Respiratory Respiratory exam: Present: clear to auscultation bilaterally. Absent: rhonchi, wheezes - Cardiovascular Cardiovascular exam: Present: regular rate and rhythm. Absent: gallop, rubs, systolic murmur - GI/Abdominal GI/Abdominal exam: Present: normal bowel sounds, soft. Absent: distended, firm , guarding, tenderness, rebound - Extremities Exam Extremities exam: Present: normal inspection. Absent: calf tenderness, edema Results - Labs CBC & BMP: 01/16/17 04:49 01/16/17 04:49 Lab Results: I have reviewed the past 24 hour labs
--- NOTE | 2017-01-16 13:18 | Physician Query Form ---
CLICK EDIT DOCUMENT TO SELECT QUERY ANSWER --> OK --> SIGN Lor Casillas RN, CCDS Certified Clinical Band [place]over W) [phone] (f) [phone] [email or web address] PROVIDERS: Make your selection(s) from the choices in EACH section by typing an "x" and enter comments in the comment section. Please use your independent medical judgment in providing your response. This request does not imply that any particular answer is desired or expected. CLINICAL INDICATORS: (Providers should not edit this section) The medical record indicates that the patient was admitted with COPD exacerbation, on the : acute CHF, : BNP of 291# and "Will check echocardiogram and bump with Lasix". Please provide further specificity regarding CHF. TYPE: ( ) Systolic ( ) Diastolic ( ) Combined Systolic/Diastolic ( ) Other, please specify: ( ) Clinically unable to determine (x ) The patient does NOT have CHF COMMENTS: Use of terms such as suspected, likely, or probable (associated with a specific diagnosis that is being evaluated, monitored, or treated as if it exists) are acceptable and can be restated in the discharge summary if not ruled out. [facility]
--- NOTE | 2017-01-16 13:19 | Physician Query Form ---
CLICK EDIT DOCUMENT TO SELECT QUERY ANSWER --> OK --> SIGN Lor Casillas RN, CCDS Certified Clinical Fitness Worker W) [phone] (f) [phone] [email or web address] PROVIDERS: Make your selection(s) from the choices in EACH section by typing an "x" and enter comments in the comment section. Please use your independent medical judgment in providing your response. This request does not imply that any particular answer is desired or expected. CLINICAL INDICATORS: (Providers should not edit this section) The medical record indicates that the patient was admitted with COPD exacerbation, "acute bronchitis", "Could be having some microaspiration", "wheezes","difficulty swallowing liquids, pills, and solids"; "history of reflux and takes OTC PPIs as needed". Xray: "Pleural thickening laterally in the right upper lobe with adjacent small nodular densities". Based on the above, could you clarify the appropriate diagnosis, if significant , that supports the above abnormalities and additional evaluation, monitoring, and/or treatment rendered: ( ) patient is not being treated or monitored for aspiration bronchitis ( ) patient is being treated or monitored for aspiration bronchitis (x ) patient is being treated for acute bronchitis only ( ) Other, please specify: ( ) Clinically unable to determine COMMENTS: Use of terms such as suspected, likely, or probable (associated with a specific diagnosis that is being evaluated, monitored, or treated as if it exists) are acceptable and can be restated in the discharge summary if not ruled out. [facility]
--- NOTE | 2017-01-16 13:28 | EKG Report ---
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
--- NOTE | 2017-01-16 20:08 | ECHO Report ---
Rafa Fam 01/16/2017 Exam Date: 14:11 Referring Physician: Urmila Bravo Technologist: HEMANT Age: 66 Ht (in): 59 Wt (lb): 107 FExam [facility] Gender: Echo [id number]: COPD, CHF, pneumonia, lung mass, diaIndications:etes, acute broncitis BP: 137 / 79 HR: 79 SinusRhythm: FairTechnical Quality: IMPRESSIONS 1. The left ventricle is normal size systolic function with ejection fraction of 55+ percent. There is mild concentric left ventricular hypertrophy without demonstrable diastolic dysfunction. 2. Other cardiac chambers are normal size and function. 3. Mitral valve is slightly thickened and sclerotic but functionally normal. 4. Aortic valve is slightly thickened and sclerotic and it worst minimal aortic valve stenosis. 5. Mildly elevated right-sided pressures at worst. MEASUREMENTS (Male / Female) Normal Values 2D ECHO LV Diastolic Diameter PLAX 4.1 cm 4.2 - 5.9 / 3.9 - 5.3 cm LV Systolic Diameter PLAX 3.1 cm LV Fractional Shortening PLAX 26.1 % IVS Diastolic Thickness 1.3 cm 0.6 - 1.0 / 0.6 - 0.9 cm LVPW Diastolic Thickness 1.1 cm 0.6 - 1.0 / 0.6 - 0.9 cm Aortic Root Diameter 2.1 cm LA Systolic Diameter LX 3.2 cm 3.0 - 4.0 / 2.7 - 3.8 cm DOPPLER TR Peak Velocity 285.0 cm/s TR Peak Gradient 32.5 mmHg FINDINGS Left Ventricle Left ventricle is normal size and normal systolic function ejection fraction of greater than 55%. There is no segmental wall motion abnormalities. There is mild concentric left ventricular hypertrophy. Right Ventricle Normal right ventricular size. Right Atrium Normal right atrial size. Left Atrium Normal left atrial size. Mitral Valve Mitral valve is mildly thickened and sclerotic but with good motion without stenosis. There is trace physiologically normal regurgitation. Aortic Valve Aortic valve is grossly tricuspid structure that is sclerotic slightly thickened. At worst there would be minimal aortic stenosis based on Doppler. Tricuspid Valve Tricuspid valve appears to be grossly normal anatomically with trace regurgitation. There is estimated right-sided pressure of 38-43 mmHg. Pulmonic Valve Mild pulmonic valve sclerosis. Trace pulmonary valve regurgitation. Pericardium No pericardial effusion. Aorta Normal size aortic root and proximal ascending aorta. Usama Lux MD (Electronically Signed) 16 January 2017 Final Date: 20:06
[2017-01-16] MEDS: clonazePAM 0.5 MG TABLET PO SCH (20:43)
[2017-01-16] MEDS: LOVASTATIN 20 MG TABLET PO SCH (20:43)
[2017-01-16] MEDS: AMITRIPTYLINE 50 MG TABLET PO SCH (20:43)
[2017-01-17 05:45] LABS: Basophils % 0.3 % (0.0-0.8); Eosinophils % 0.2 % (0.00-10.9); Hematocrit 37.8 VOL% (35.7-47.0); Hemoglobin 11.3 GM/DL (12.0-16.0); Immature Granulocytes % 1.6 %; Lymphocytes # 1.2 10*3/uL (1.4-4.0); Lymphocytes % 19.5 % (21.3-54.2); Mean Corpuscular HGB Conc 29.9 GM/DL (32-36); Mean Corpuscular Hemoglobin 23 PG (27-34); Mean Corpuscular Volume 77.1 FL (87-102); Mean Platelet Volume 11.1 FL (9.6-12.0); Monocytes # 0.5 10*3/uL (0.11-0.8); Monocytes % 7.6 % (1.7-12.7); Neutrophils # 4.5 10*3/uL (1.4-7.4); Neutrophils % 70.8 % (38.7-73.9); Platelet Count 244 T/CUMM (130-400); Red Cell Distribution Width 16.3 % (9.3-17.3); White Blood Count 6.4 T/CUMM (4-12)
[2017-01-17 06:15] LABS: Calcium 8.9 MG/DL (8.5-10.1); Osmolality,Calculated 282.4 MOS/KG (273-304); Potassium 4.8 MMOL/L (3.5-5.1)
[2017-01-17] MEDS: methylPREDNISolone SOD SUC 40 MG/1 ML VIAL IV SCH ×3 (07:26→21:54)
--- NOTE | 2017-01-17 07:36 | Pulmonology Progress Note ---
Pulmonary - PN: Subj Interval history: This 66-year-old white female had the acute onset of fever cough congestion and nausea about 4 or 5 days ago. I had seen her in the office 6 days ago for follow-up of a right hilar lymph node with pulmonary opacities. We have followed these for right hip [address] scans. She had a bronchoscope as well as a PET scan in 2015 and both were negative. The lymph node has not grown over 2 years. The nonspecific pulmonary opacities have not changed and are felt to be scar from previous infectious processes. Patient has a hiatal hernia and has had some vomiting. Certainly there is a chance she may be having some microaspiration. At present she has acute bronchitis. We need to get that doing a little better before considering gastroscope. 01/16/2017 patient is feeling better this morning. Less wheezing. Her BNP is elevated at 291. Will check echocardiogram. Bump with Lasix. She is set up for gastroscope this morning. 01/17/2017 patient is feeling better. He has minimal expiratory wheezes. Should be able to tolerate gastroscope today. Exam (Progress Note) - Constitutional Vitals: Period Temp Pulse Resp BP Sys/Guaman Pulse Ox Last 24 Hr 97.0 F-98.6 F 68-85 16-20 155-182/71-85 94-98 Exam: Patient's alert oriented vital signs normal. Pupils react to light. Throat is clear. Neck supple no bruits. Chest reveals minimal expiratory wheezes bilaterally. Heart normal rate rhythm no murmurs. Abdomen soft nontender no masses. Extremities no clubbing cyanosis or edema. Calves nontender. Results - Labs CBC & BMP: 01/17/17 05:10 01/17/17 05:10 Lab Results: I have reviewed the past 24 hour labs Assessment and Plan (1) COPD with acute exacerbation Status: Acute Assessment and plan: Needs steroids bronchodilators and antibiotics. Need to get this tuned up before getting sedation for gastroscope. 01/16/2017 COPD is improved. Some of wheezing may be due to congestive heart failure. 01/17/2017 patient is feeling better. Should be able to tolerate gastroscope today. Probably had an element of congestive heart failure which is improved as well. Current Visit: Yes (2) Acute bronchitis Status: Acute Assessment and plan: I do not see anything that would qualify as pneumonia on her x-ray. Treatment with Levaquin should suffice. 01/16/2017 continuing antibiotics and low-dose steroids for now. Continuing bronchodilators. 01/17/2017 will reduce steroids a little further. Current Visit: Yes (3) Mediastinal lymphadenopathy Status: Acute Assessment and plan: As a right paratracheal node that is a little less than 2 cm in diameter. It has not changed in 2 years. It was negative on PET scan 2 years ago. This is benign. May be old granulomatous disease. Impossible to site radiographically. No reason to biopsy it since it is not enlarging. 01/16/2017 this is stable and does not require further evaluation. 01/17/2017 again the mediastinal lymphadenopathy is old and has not changed. Current Visit: Yes (4) Hiatal hernia Status: Acute Assessment and plan: She had some fullness nausea and vomiting difficulty swallowing. Needs to be assessed for possible esophageal stricture. Agree with treating her for reflux. Could be having some microaspiration. Would like to wait until bronchospasm is better before sedation for gastroscope. 01/16/2017 patient is for gastroscope today to evaluate difficulty swallowing and questionable history of recurrent aspiration. 01/17/2017 patient has symptoms of reflux and possible aspiration. May have esophageal stricture. Does have a hiatal hernia. Agree with need for EGD today. Current Visit: Yes
--- NOTE | 2017-01-17 07:51 | XRay Report ---
XR chest 2V Indication: COPD, bronchitis Comparison: 14 January 2017 Findings: The heart and mediastinum are normal in size and configuration. The pulmonary vascularity is normal in caliber. Lung volumes are increased with prominent bronchial markings. Small nodular densities are present in both lower lungs similar to previous study. Scarring in the right upper lobe is similar to previous exam. No other lung infiltrates, effusions, pneumothorax or other abnormality is demonstrated. Impression: Chronic lung changes. No acute process or significant change. PROCEDURE INTERPRETED AT [facility] DEPARTMENT OF RADIOLOGY Final Report Signed by: Dr. Olegario Becker
[2017-01-17] MEDS: LEVOFLOXACIN INJ 750 MG in PREMIX 1 EACH IV SCH (09:13)
--- NOTE | 2017-01-17 10:20 | Hospitalist Progress Note ---
Assessment and Plan - Time spent with patient Time spent with patient: Greater than 30 minutes (1) Pneumonia Status: Acute Assessment and plan: Appreciate Pulms assistance. Current Visit: Yes (2) Lung mass Status: Acute Assessment and plan: Defer to Pulm. Current Visit: Yes (3) Diabetes mellitus Status: Acute Assessment and plan: Continue home medications. Current Visit: Yes (4) Seizure disorder Status: Acute Assessment and plan: Continue home medications. Current Visit: Yes (5) COPD (chronic obstructive pulmonary disease) Status: Acute Assessment and plan: Continue antibiotics breathing treatments and Solu-Medrol. Current Visit: Yes (6) CHF (congestive heart failure) Status: Acute Assessment and plan: Stable continue home medications. Current Visit: Yes (7) Epigastric pain Status: Acute Assessment and plan: EGD today. Current Visit: Yes Hospitalist: Subjective Interval history: No complaints, no overnight events. Pulmonary has cleared the patient for EGD today. Exam - Constitutional Vitals: Period Temp Pulse Resp BP Sys/Guaman Pulse Ox Last 24 Hr 97.0 F-98.6 F 68-85 16-20 155-166/71-85 94-98 General appearance: no acute distress - Head Head exam: Present: normocephalic, atraumatic - Eye Eye exam: Present: EOMI Pupils: Present: EIRK - ENT ENT exam: Present: normal exam - Neck Neck exam: Present: normal inspection - Respiratory Respiratory exam: Present: clear to auscultation bilaterally. Absent: rhonchi, wheezes - Cardiovascular Cardiovascular exam: Present: regular rate and rhythm. Absent: gallop, rubs, systolic murmur - GI/Abdominal GI/Abdominal exam: Present: normal bowel sounds, soft. Absent: distended, firm , guarding, tenderness, rebound - Extremities Exam Extremities exam: Present: normal inspection. Absent: calf tenderness, edema Results - Labs CBC & BMP: 01/17/17 05:10 01/17/17 05:10 Lab Results: I have reviewed the past 24 hour labs
[2017-01-17] MEDS ORDERED: PROPOFOL 200 MG/20 ML VIAL IV ONE (11:35)
[2017-01-17] MEDS ORDERED: LIDOCAINE 2% 5 ML VIAL ONE (11:35)
--- NOTE | 2017-01-17 11:44 | History and Physical Update ---
History and Physical Update - Physical Exam Mental Status: alert and oriented Heart: regular rate and rhythm Lung: clear to auscultation Abdomen: within normal limits Vitals: within normal limits
--- NOTE | 2017-01-17 11:46 | Operative Note ---
Date of procedure: 01/17/17 Pre-op diagnosis: Dysphagia Procedure: EGD with biopsy and esophageal dilatation. 66-year-old female admitted with worsening bronchitis complaining of dysphagia complaints now for upper endoscopy to further evaluate. Informed consent was obtained for the patient She was sedated with MAC anesthesia per anesthesia protocol. Patient placed in the left lateral decubitus position the Olympus flexible video upper endoscope was inserted in the oral cavity under direct vision the esophagus was intubated. Findings: Esophagus-normal proximal mid esophageal mucosa distal esophagus with moderate hiatal hernia distal esophageal stricture and associated erosive esophagitis. Stomach-normal insufflation multiple antral gastric ulcers are seen approximately 5 ulcers are seen with the largest which being approximately 6 mm no visible vessel or active bleeding was noted. Biopsies were taken. Remaining stomach normal dye retroflexed views of the body fundus and cardia. Pylorus-normal Duodenum-normal for the bulb of the duodenum to the third portion of the duodenum. The procedure was terminated scope was removed subsequently a 54 Kinyarwanda bougie was passed without difficulty. No resistance was felt with the dilator no blood was present on the dilator on termination. Patient was discharged recovery in good condition Postop diagnosis: 1. Gastroesophageal reflux disease with erosive esophagitis-continue PPI treatment antireflux precautions 2. Acute gastric [id number] biopsies continue PPI treatment avoid nonsteroidals. Will need repeat EGD in 2 months as an outpatient to verify healing. 3. Esophageal stricture repeat dilatation on as-needed basis. Anesthesia: MAC Surgeon / Physician: Sarwat Ledesma Estimated blood loss: none Specimens: other (Acute antral gastric ulcer) Condition: stable Disposition: post procedure unit Results - Labs CBC & BMP: 01/17/17 05:10 01/17/17 05:10 Discharge Plan - Discharge Medications No Action Hydrocodone/Acetaminophen [Hydrocodon-Acetaminophn 10-325] 1 each PO PRN PRN PRN Reason: Pain Levothyroxine Tab [Synthroid Tab] 100 mcg PO DAILY glipiZIDE [Glipizide] 5 mg PO DAILY Amitriptyline HCl 50 mg PO BEDTIME lamoTRIgine [Lamictal Xr] 50 mg PO BID Lovastatin 20 mg PO BEDTIME Ipratropium/Albuterol Inhaler [Combivent Respimat Inhaler] 1 puff INH QID hydroCHLOROthiazide [Hydrochlorothiazide] 25 mg PO DAILY Lurasidone [Latuda] 40 mg PO BEDTIME clonazePAM [Klonopin] 1 mg PO BEDTIME Topiramate [Topamax] 25 mg PO BEDTIME Phenytoin ER Cap [Dilantin Cap] 100 mg PO TID Fluoxetine HCl [Prozac] 40 mg PO DAILY Potassium Chloride [Klor-Con Sprinkle] 10 meq PO BID - Follow Up or Referral - Forms/Instructions
--- NOTE | 2017-01-17 11:49 | Anesthesia ---
Anesthesia Post OP - Post Ansesthetic Evaluation Patient seen in post op: Yes Resp: within normal limits CV: within normal limits Mental: within normal limits Temp: within normal limits [id number]: within normal limits Nausea and Vomiting: within normal limits Pain: within normal limits
[2017-01-17] MEDS: POTASSIUM CHLORIDE 10 MEQ TABLET PO SCH ×2 (13:32→21:35)
[2017-01-17] MEDS: LURASIDONE 40 MG TABLET PO SCH (13:32)
[2017-01-17] MEDS: lamoTRIgine 25 MG TABLET PO SCH ×2 (13:33→21:34)
[2017-01-17] MEDS: FUROSEMIDE 20 MG TABLET PO SCH (13:33)
[2017-01-17] MEDS: LEVOTHYROXINE 75 MCG TABLET PO SCH (13:33)
[2017-01-17] MEDS: glipiZIDE 5 MG TABLET PO SCH (13:33)
[2017-01-17] MEDS: FERROUS SULFATE 325 MG TABLET PO SCH ×3 (13:33→21:34)
[2017-01-17] MEDS: INSULIN LISPRO 100 UNIT/ML SUBCUT SCH ×3 (13:33→21:44)
[2017-01-17] MEDS: PHENYTOIN ER 100 MG CAPSULE PO SCH ×3 (13:33→21:35)
[2017-01-17] MEDS: PANTOPRAZOLE 40 MG TABLET PO SCH ×3 (13:33→21:35)
[2017-01-17] MEDS ORDERED: DEXTROSE 50% 25 GM/50 ML VIAL IV PRN (14:25)
[2017-01-17] MEDS ORDERED: GLUCAGON 1 MG VIAL IM PRN (14:25)
[2017-01-17] MEDS: clonazePAM 0.5 MG TABLET PO SCH (21:34)
[2017-01-17] MEDS: LOVASTATIN 20 MG TABLET PO SCH (21:35)
[2017-01-17] MEDS: AMITRIPTYLINE 50 MG TABLET PO SCH (21:35)
[2017-01-18] MEDS: LEVOTHYROXINE 75 MCG TABLET PO SCH (06:33)
[2017-01-18] MEDS: methylPREDNISolone SOD SUC 40 MG/1 ML VIAL IV SCH (06:43)
--- NOTE | 2017-01-18 07:20 | Pulmonology Progress Note ---
Pulmonary - PN: Subj Interval history: This 66-year-old white female had the acute onset of fever cough congestion and nausea about 4 or 5 days ago. I had seen her in the office 6 days ago for follow-up of a right hilar lymph node with pulmonary opacities. We have followed these for right hip [address]. She had a bronchoscope as well as a PET scan in 2014 and both were negative. The lymph node has not grown over 2 years. The nonspecific pulmonary opacities have not changed and are felt to be scar from previous infectious processes. Patient has a hiatal hernia and has had some vomiting. Certainly there is a chance she may be having some microaspiration. At present she has acute bronchitis. We need to get that doing a little better before considering gastroscope. 01/16/2017 patient is feeling better this morning. Less wheezing. Her BNP is elevated at 291. Will check echocardiogram. Bump with Lasix. She is set up for gastroscope this morning. 01/17/2017 patient is feeling better. He has minimal expiratory wheezes. Should be able to tolerate gastroscope today. 01/18/2017 patient had EGD yesterday with findings of a gastric ulcer and esophageal stricture which was dilated. She feels a little better this morning. Still having some wheezing in the left long. She has COPD with exacerbation. The pulmonary nodules and right hilar enlargement are chronic and have been followed for years and she does not have a lung mass. Overall she is feeling better. Will taper her steroids. Probably can be discharged in a day or 2. Exam (Progress Note) - Constitutional Vitals: Period Temp Pulse Resp BP Sys/Guaman Pulse Ox Last 24 Hr 97.3 F-98.8 F 68-83 16-25 113-182/66-90 92-100 Exam: Patient's alert oriented vital signs normal. Pupils react to light. Throat is clear. Neck supple no bruits. Chest reveals minimal expiratory wheezes on right. Heart normal rate rhythm no murmurs. Abdomen soft nontender no masses. Extremities no clubbing cyanosis or edema. Calves nontender. Results - Labs CBC & BMP: 01/17/17 05:10 01/17/17 05:10 Lab Results: I have reviewed the past 24 hour labs Assessment and Plan (1) COPD with acute exacerbation Status: Acute Assessment and plan: Needs steroids bronchodilators and antibiotics. Need to get this tuned up before getting sedation for gastroscope. 01/16/2017 COPD is improved. Some of wheezing may be due to congestive heart failure. 01/17/2017 patient is feeling better. Should be able to tolerate gastroscope today. Probably had an element of congestive heart failure which is improved as well. 01/18/2017 she has pretty severe COPD with an acute exacerbation. She is improving. Tapering steroids. Current Visit: Yes (2) Acute bronchitis Status: Acute Assessment and plan: I do not see anything that would qualify as pneumonia on her x-ray. Treatment with Levaquin should suffice. 01/16/2017 continuing antibiotics and low-dose steroids for now. Continuing bronchodilators. 01/17/2017 will reduce steroids a little further. 01/18/2017 continuing antibiotics. Current Visit: Yes (3) Mediastinal lymphadenopathy Status: Acute Assessment and plan: As a right paratracheal node that is a little less than 2 cm in diameter. It has not changed in 2 years. It was negative on PET scan 2 years ago. This is benign. May be old granulomatous disease. Impossible to site radiographically. No reason to biopsy it since it is not enlarging. 01/16/2017 this is stable and does not require further evaluation. 01/17/2017 again the mediastinal lymphadenopathy is old and has not changed. 01/18/2017 this is old and stable. Likely old granulomatous disease Current Visit: Yes (4) Hiatal hernia Status: Acute Assessment and plan: She had some fullness nausea and vomiting difficulty swallowing. Needs to be assessed for possible esophageal stricture. Agree with treating her for reflux. Could be having some microaspiration. Would like to wait until bronchospasm is better before sedation for gastroscope. 01/16/2017 patient is for gastroscope today to evaluate difficulty swallowing and questionable history of recurrent aspiration. 01/17/2017 patient has symptoms of reflux and possible aspiration. May have esophageal stricture. Does have a hiatal hernia. Agree with need for EGD today. 01/18/2017 had EGD with findings of hiatal hernia, esophageal stricture which was dilated, and acute gastric ulcer. She is on treatment for the ulcer. Tapering steroids further. Probably could stop them in another couple of days. Current Visit: Yes
[2017-01-18] MEDS: FERROUS SULFATE 325 MG TABLET PO SCH ×3 (09:58→21:52)
[2017-01-18] MEDS: glipiZIDE 5 MG TABLET PO SCH (09:58)
[2017-01-18] MEDS: lamoTRIgine 25 MG TABLET PO SCH ×2 (09:58→21:54)
[2017-01-18] MEDS: PANTOPRAZOLE 40 MG TABLET PO SCH ×2 (09:58→21:52)
[2017-01-18] MEDS: FUROSEMIDE 20 MG TABLET PO SCH (09:58)
[2017-01-18] MEDS: POTASSIUM CHLORIDE 10 MEQ TABLET PO SCH ×2 (09:58→21:54)
[2017-01-18] MEDS: PHENYTOIN ER 100 MG CAPSULE PO SCH ×3 (09:58→21:54)
[2017-01-18] MEDS: LEVOFLOXACIN INJ 750 MG in PREMIX 1 EACH IV SCH (09:58)
[2017-01-18] MEDS: INSULIN LISPRO 100 UNIT/ML SUBCUT SCH ×4 (10:06→21:59)
--- NOTE | 2017-01-18 10:23 | Hospitalist Progress Note ---
Assessment and Plan - Time spent with patient Time spent with patient: Greater than 30 minutes (1) Pneumonia Status: Acute Assessment and plan: Appreciate Pulms assistance. Current Visit: Yes (2) Lung mass Status: Acute Assessment and plan: Defer to Pulm. Current Visit: Yes (3) Diabetes mellitus Status: Acute Assessment and plan: Continue home medications. Current Visit: Yes (4) Seizure disorder Status: Acute Assessment and plan: Continue home medications. Current Visit: Yes (5) COPD (chronic obstructive pulmonary disease) Status: Acute Assessment and plan: Continue antibiotics breathing treatments and Solu-Medrol. Current Visit: Yes (6) CHF (congestive heart failure) Status: Acute Assessment and plan: Stable continue home medications. Current Visit: Yes Hospitalist: Subjective Interval history: No complaints currently. No overnight events. Exam - Constitutional Vitals: Period Temp Pulse Resp BP Sys/Guaman Pulse Ox Last 24 Hr 97.3 F-98.8 F 66-79 16-25 113-182/66-90 92-100 General appearance: no acute distress - Head Head exam: Present: normocephalic, atraumatic - Eye Eye exam: Present: EOMI Pupils: Present: ERIK - ENT ENT exam: Present: normal exam - Neck Neck exam: Present: normal inspection - Respiratory Respiratory exam: Present: wheezes. Absent: rhonchi - Cardiovascular Cardiovascular exam: Present: regular rate and rhythm. Absent: gallop, rubs, systolic murmur - GI/Abdominal GI/Abdominal exam: Present: normal bowel sounds, soft. Absent: distended, firm , guarding, tenderness, rebound - Extremities Exam Extremities exam: Present: normal inspection. Absent: calf tenderness, edema Results - Labs CBC & BMP: 01/17/17 05:10 01/17/17 05:10 Lab Results: I have reviewed the past 24 hour labs
--- NOTE | 2017-01-18 11:38 | Gastrointestinal Progress Note ---
<Josiane George - Last Filed: 01/18/17 11:35> Assessment and Plan (1) Epigastric pain Status: Acute Assessment and plan: 01/18-EGD findings noted. Dysphagia is improved today. We will schedule patient return in 2 months for repeat EGD to verify ulceration healings. On discharge patient will need to continue PPI twice daily until repeat endoscopy. Plan an addendum to follow by Dr. Ledesma. 01/16-No changes at present. EGD postponed until able to proceed from resp standpoint. Plan and addendum to follow by DR Ledesma. 01/15-several month history of difficulty swallowing liquids, pills, and solids with worsening over the last several weeks. History of reflux. Denies odynophagia. History of heavy NSAID use as well as peptic ulcer disease in the past. Last endoscopy 2 years ago in [place]. Obtain records from Dr. Coffman regarding colonoscopy and EGD. Continue PPI. Plan for tentative EGD tomorrow if patient remains stable. Plan an addendum to follow by Dr. Ledesma. Current Visit: Yes Gastroenterology - PN: Subj Interval history: CC: Dysphagia Patient is seen awake alert sitting up in bed. States she is feeling somewhat better today. Patient is status post EGD on yesterday with findings of GERD and erosive esophagitis, acute gastric ulcer, and esophageal stricture with dilation. Patient states that she can tell she is swallowing somewhat better today following dilation but does have a mild "scratchy" throat. Abdomen soft, nontender. Discussed findings with patient and will plan to have her return in 2 months for repeat EGD to verify healing of her ulcerations. Discussed importance of continuing her PPI as ordered until repeat endoscopy. ROS: Denies shortness of breath or chest pain Exam (Progress Note) - Constitutional Vitals: Period Temp Pulse Resp BP Sys/Guaman Pulse Ox Last 24 Hr 97.3 F-98.8 F 66-79 16-25 113-182/66-82 92-100 General appearance: normal weight, no acute distress - Head Head exam: Present: normal inspection, normocephalic - Eye Eye exam: Present: other (Lids and conjunctive are unremarkable). Absent: scleral icterus - ENT ENT exam: Present: normal exam, normal oropharynx - Neck Neck exam: Present: normal inspection - Respiratory Respiratory exam: Present: clear to auscultation bilaterally. Absent: rales, rhonchi, wheezes - Cardiovascular Cardiovascular exam: Present: regular rate and rhythm. Absent: diastolic murmur , JVD, systolic murmur - GI/Abdominal GI/Abdominal exam: Present: normal bowel sounds, soft. Absent: ascites, distended, mass, organomegaly, tenderness - Extremities Exam Extremities exam: Present: normal inspection, full ROM - Back Exam Back exam: Present: normal inspection - Neurological Exam Neurological exam: Present: alert, oriented X3 - Psychiatric Psychiatric exam: Present: normal affect, normal mood - Skin Skin exam: Present: normal color, warm, dry Results - Labs CBC & BMP: 01/17/17 05:10 01/17/17 05:10 Lab Results: I have reviewed the past 24 hour labs <Sarwat Ledesma - Last Filed: 01/18/17 18:09> Exam (Progress Note) - Constitutional Vitals: Period Temp Pulse Resp BP Sys/Guaman Pulse Ox Last 24 Hr 97.5 F-98.8 F 66-79 18-20 113-166/65-79 92-98 Results - Labs CBC & BMP: 01/17/17 05:10 01/17/17 05:10
[2017-01-18] MEDS: LURASIDONE 40 MG TABLET PO SCH (12:08)
[2017-01-18] MEDS: clonazePAM 0.5 MG TABLET PO SCH (21:52)
[2017-01-18] MEDS: AMITRIPTYLINE 50 MG TABLET PO SCH (21:53)
[2017-01-18] MEDS: LOVASTATIN 20 MG TABLET PO SCH (21:53)
[2017-01-19] MEDS: LEVOTHYROXINE 75 MCG TABLET PO SCH (06:41)
--- NOTE | 2017-01-19 07:42 | Pulmonology Progress Note ---
Pulmonary - PN: Subj Interval history: This 66-year-old white female had the acute onset of fever cough congestion and nausea about 4 or 5 days ago. I had seen her in the office 6 days ago for follow-up of a right hilar lymph node with pulmonary opacities. We have followed these for right hip [address] She had a bronchoscope as well as a PET scan in 2014 and both were negative. The lymph node has not grown over 2 years. The nonspecific pulmonary opacities have not changed and are felt to be scar from previous infectious processes. Patient has a hiatal hernia and has had some vomiting. Certainly there is a chance she may be having some microaspiration. At present she has acute bronchitis. We need to get that doing a little better before considering gastroscope. 01/16/2017 patient is feeling better this morning. Less wheezing. Her BNP is elevated at 291. Will check echocardiogram. Bump with Lasix. She is set up for gastroscope this morning. 01/17/2017 patient is feeling better. He has minimal expiratory wheezes. Should be able to tolerate gastroscope today. 01/18/2017 patient had EGD yesterday with findings of a gastric ulcer and esophageal stricture which was dilated. She feels a little better this morning. Still having some wheezing in the left long. She has COPD with exacerbation. The pulmonary nodules and right hilar enlargement are chronic and have been followed for years and she does not have a lung mass. Overall she is feeling better. Will taper her steroids. Probably can be discharged in a day or 2. 01/19/2017 patient feeling better. Only minimal wheezing. Could be changed to oral prednisone and Levaquin. Ready for discharge. Would keep on 40 mg of prednisone for about 5 more days. She follows with me in the clinic and should already have an appointment. If not I will be happy to see her in 6 weeks or so. Exam (Progress Note) - Constitutional Vitals: Period Temp Pulse Resp BP Sys/Guaman Pulse Ox Last 24 Hr 97.5 F-98.8 F 65-77 18-20 142-167/65-87 20-99 Exam: Patient's alert oriented vital signs normal. Pupils react to light. Throat is clear. Neck supple no bruits. Chest reveals minimal expiratory wheezes on right. Heart normal rate rhythm no murmurs. Abdomen soft nontender no masses. Extremities no clubbing cyanosis or edema. Calves nontender. Results - Labs CBC & BMP: 01/17/17 05:10 01/17/17 05:10 Lab Results: I have reviewed the past 24 hour labs Assessment and Plan (1) COPD with acute exacerbation Status: Acute Assessment and plan: Needs steroids bronchodilators and antibiotics. Need to get this tuned up before getting sedation for gastroscope. 01/16/2017 COPD is improved. Some of wheezing may be due to congestive heart failure. 01/17/2017 patient is feeling better. Should be able to tolerate gastroscope today. Probably had an element of congestive heart failure which is improved as well. 01/18/2017 she has pretty severe COPD with an acute exacerbation. She is improving. Tapering steroids. 01/19/2017 this has improved with treatment. Ready for change to oral prednisone 40 mg for 5 days, oral Levaquin 500 mg daily for about 5 days as well. Discharge as needed. Current Visit: Yes (2) Acute bronchitis Status: Acute Assessment and plan: I do not see anything that would qualify as pneumonia on her x-ray. Treatment with Levaquin should suffice. 01/16/2017 continuing antibiotics and low-dose steroids for now. Continuing bronchodilators. 01/17/2017 will reduce steroids a little further. 01/18/2017 continuing antibiotics. 01/19/2017 this is improved. Current Visit: Yes (3) Mediastinal lymphadenopathy Status: Acute Assessment and plan: As a right paratracheal node that is a little less than 2 cm in diameter. It has not changed in 2 years. It was negative on PET scan 2 years ago. This is benign. May be old granulomatous disease. Impossible to site radiographically. No reason to biopsy it since it is not enlarging. 01/16/2017 this is stable and does not require further evaluation. 01/17/2017 again the mediastinal lymphadenopathy is old and has not changed. 01/18/2017 this is old and stable. Likely old granulomatous disease 01/19/2017 this is old and unchanged. Current Visit: Yes (4) Hiatal hernia Status: Acute Assessment and plan: She had some fullness nausea and vomiting difficulty swallowing. Needs to be assessed for possible esophageal stricture. Agree with treating her for reflux. Could be having some microaspiration. Would like to wait until bronchospasm is better before sedation for gastroscope. 01/16/2017 patient is for gastroscope today to evaluate difficulty swallowing and questionable history of recurrent aspiration. 01/17/2017 patient has symptoms of reflux and possible aspiration. May have esophageal stricture. Does have a hiatal hernia. Agree with need for EGD today. 01/18/2017 had EGD with findings of hiatal hernia, esophageal stricture which was dilated, and acute gastric ulcer. She is on treatment for the ulcer. Tapering steroids further. Probably could stop them in another couple of days. 01/19/2017 she has peptic ulcer disease and had a stricture dilated. Dr. Ledesma will follow her in the clinic on that. Current Visit: Yes
[2017-01-19] MEDS ORDERED: methylPREDNISolone SOD SUC 40 MG/1 ML VIAL IV SCH (09:00)
[2017-01-19] MEDS: INSULIN LISPRO 100 UNIT/ML SUBCUT SCH ×2 (09:34→12:03)
[2017-01-19] MEDS: FERROUS SULFATE 325 MG TABLET PO SCH (09:35)
[2017-01-19] MEDS: LEVOFLOXACIN INJ 750 MG in PREMIX 1 EACH IV SCH (09:35)
[2017-01-19] MEDS: glipiZIDE 5 MG TABLET PO SCH (09:35)
[2017-01-19] MEDS: PANTOPRAZOLE 40 MG TABLET PO SCH (09:36)
[2017-01-19] MEDS: lamoTRIgine 25 MG TABLET PO SCH (09:36)
[2017-01-19] MEDS: FUROSEMIDE 20 MG TABLET PO SCH (09:36)
[2017-01-19] MEDS: POTASSIUM CHLORIDE 10 MEQ TABLET PO SCH (09:36)
[2017-01-19] MEDS: PHENYTOIN ER 100 MG CAPSULE PO SCH (09:36)
--- NOTE | 2017-01-19 10:46 | Discharge Summary ---
Hospital Course - Hospital Course Hospital Course: Ms. Fam was transferred from an outside hospital to [facility] for evaluation of chest mass seen on imaging. Patient was admitted to inpatient for management of acute bronchitis and further evaluation of chest mass. Pulmonary was consulted and is very well aware of this patient. 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 The patient continued on treatment for acute bronchitis and slowly improved. She had complaints of epigastric pain with negative amylase lipase and right upper quadrant ultrasound. She was evaluated by GI with EGD and had dilation of the stricture at the distal esophagus and an acute gastric ulcer was seen. Patient will continue PPI and follow-up with a EGD in 6 weeks. She will also be discharged with continuation of her antibiotics and steroids. She will follow-up with pulmonary. I discharge she had met maximum benefit of hospitalization. I spent 38 minutes coordinating this discharge. - Time spent with patient Time with patient DS: Greater than 30 minutes Diagnosis - Discharge Diagnosis (1) Pneumonia Status: Acute (2) Lung mass Status: Acute (3) Diabetes mellitus Status: Acute (4) Seizure disorder Status: Acute (5) COPD (chronic obstructive pulmonary disease) Status: Acute (6) CHF (congestive heart failure) Status: Acute Discharge Plan - Discharge Data Disposition: Disch To Home/Self Care Condition at Discharge: Stable Discharge Diet: advance to your usual diet Activity: resume usual activities as tolerated - Discharge Medications New Pantoprazole Tab [Protonix Tab] 40 mg PO BID #60 tablet predniSONE TAB [PredniSONE] 50 mg PO DAILY #5 tablet Levofloxacin Tab [Levaquin Tab] 500 mg PO DAILY #5 tablet Continue Hydrocodone/Acetaminophen [Hydrocodon-Acetaminophn 10-325] 1 each PO PRN PRN PRN Reason: Pain Levothyroxine Tab [Synthroid Tab] 100 mcg PO DAILY glipiZIDE [Glipizide] 5 mg PO DAILY Amitriptyline HCl 50 mg PO BEDTIME lamoTRIgine [LaMICtal XR Tab] 50 mg PO BID Lovastatin 20 mg PO BEDTIME Ipratropium/Albuterol Inhaler [Combivent Respimat Inhaler] 1 puff INH QID hydroCHLOROthiazide [Hydrochlorothiazide] 25 mg PO DAILY Lurasidone [Latuda] 40 mg PO BEDTIME clonazePAM [Klonopin] 1 mg PO BEDTIME Topiramate [Topamax] 25 mg PO BEDTIME Phenytoin ER Cap [Dilantin Cap] 100 mg PO TID Fluoxetine HCl [Prozac] 40 mg PO DAILY Potassium Chloride [Klor-Con Sprinkle] 10 meq PO BID - Follow Up or Referral - Forms/Instructions Exam - Constitutional Vitals: Period Temp Pulse Resp BP Sys/Guaman Pulse Ox Last 24 Hr 97.5 F-98.8 F 65-77 16-20 142-167/65-87 20-99 General appearance: normal weight, no acute distress - Head Head exam: Present: normal inspection, normocephalic, atraumatic - Eye Eye exam: Present: EOMI Pupils: Present: ERIK - ENT ENT exam: Present: normal exam - Neck Neck exam: Present: normal inspection - Respiratory Respiratory exam: Present: clear to auscultation bilaterally. Absent: accessory muscle use, prolonged expiratory phase, wheezes - Cardiovascular Cardiovascular exam: Present: regular rate and rhythm. Absent: bradycardia, irregular rhythm, systolic murmur - GI/Abdominal GI/Abdominal exam: Present: normal bowel sounds. Absent: ascites, hypoactive bowel sounds, tenderness - Extremities Exam Extremities exam: Present: normal inspection Discharge Results Labs on day of discharge: Labs from last 24 hours 01/19/17 01/18/17 01/18/17 08:13 19:47 15:35 POC Glucose 110 H 104 95 01/18/17 12:01 POC Glucose 141 H DS: Provider Date of admission: 01/13/17 20:56 Primary care physician: . No PCP Attending physician on admission: Ketan Amin MD Consults: 01/13/17 22:01 Consult to Pharmacy [CONS] Routine Reason for Pharmacy Consult: Adjust Meds Renal Funct 01/14/17 11:33 Consult to Physician [CONS] Routine Comment: epigastric pain, hiatal hernia-Dr Chaudhary out today Consulting Provider: Sarwat Ledesma Consult to Specialist Group: Gastroenterology When should Consulting Provider be notified: In am Discharging clinician: Kaycee Moreno MD Expected date of discharge: 01/19/17
[2017-01-19 12:02] VITALS: BP 170/91
[2017-01-19] MEDS: LURASIDONE 40 MG TABLET PO SCH (12:23)
== END 2017-01-19 13:31 | disposition home or self-care (01) | DRG 190 ==
LOC: EDBD → EDUNIT# → N.ED 17:47 → N.EDINP 20:56 → SUATTDRO 20:56 → N.2E 21:23
PROVIDERS: ADMIT Family Medicine; ATTEND Internal Medicine

== ENCOUNTER 2018-07-30 20:26 | Inpatient (IN) ==
[2018-07-31] MEDS ORDERED: ONDANSETRON 4 MG/2 ML VIAL IV PRN (00:28)
[2018-07-31] MEDS ORDERED: ALBUTEROL/IPRATROPIUM 3 ML NEB RESP TX PRN (00:32)
[2018-07-31] MEDS ORDERED: GLUCAGON 1 MG VIAL IM PRN (00:36)
[2018-07-31] MEDS ORDERED: DEXTROSE 50% 25 GM/50 ML VIAL IV PRN (00:36)
[2018-07-31] MEDS ORDERED: LEVOFLOXACIN INJ 750 MG in PREMIX 1 EACH IV ONE (00:41)
[2018-07-31 00:57] LABS: ABG Base Excess -1.9 MMOL/L (-2.5-2.5); ABG HCO3 22.8 MMOL/L (20-26); ABG Oxygen Saturation 97.1 % (95-100); ABG PCO2 32.3 MM HG (35-48); ABG PH 7.438 (7.35-7.45); ABG PO2 92.4 MM HG (80-95); ABG TCO2 20.8 MMOL/L (23-27); Allen Test Positive
[2018-07-31] MEDS ORDERED: LEVOFLOXACIN INJ 750 MG in PREMIX 1 EACH IV SCH (01:00)
[2018-07-31] MEDS ORDERED: ACETAMINOPHEN 500 MG TABLET PO ONE (01:03)
[2018-07-31] MEDS: SODIUM CHLORIDE 0.9% 1,000 ML IV SCH (01:07)
[2018-07-31] MEDS: methylPREDNISolone SOD SUC 40 MG/1 ML VIAL IV SCH ×3 (01:07→16:44)
[2018-07-31 01:41] LABS: Basophils % 0.3 % (0.0-0.8); Eosinophils % 0.1 % (0.00-10.9); Hematocrit 22.4 VOL% (35.7-47.0); Immature Granulocytes % 1.5 %; Immature Granulocytes Absolute 0.21 #; Lymphocytes # 0.5 10*3/uL (1.4-4.0); Lymphocytes % 3.7 % (21.3-54.2); Mean Corpuscular HGB Conc 27.7 GM/DL (32-36); Mean Corpuscular Hemoglobin 19 PG (27-34); Mean Corpuscular Volume 68.7 FL (87-102); Monocytes # 0.8 10*3/uL (0.11-0.8); Monocytes % 5.4 % (1.7-12.7); Neutrophils # 12.4 10*3/uL (1.4-7.4); Platelet Count 109 T/CUMM (130-400); Red Blood Count 3.26 MC/CUMM (3.8-5.5); Red Cell Distribution Width 19.7 % (9.3-17.3); White Blood Count 13.9 T/CUMM (4-12)
[2018-07-31 01:45] LABS: Hemoglobin 6.2 GM/DL (12.0-16.0)
[2018-07-31] MEDS ORDERED: SODIUM CHLORIDE 0.9% 1,000 ML IV PRN ×2 (01:55→05:13)
[2018-07-31 03:03] LABS: Band Neutrophils 9 % (0-10); Lymphocytes 4 % (20-55); Segmented Neutrophils 84 % (50-85); Total Cells Counted 100
[2018-07-31 03:04] LABS: Anisocytosis 1+; Hypochromasia 1+; Ovalocytes 1+
[2018-07-31 03:05] LABS: Platelet Estimate Adequate
[2018-07-31 03:08] LABS: Basophils % 0.3 % (0.0-0.8); Hematocrit 22.3 VOL% (35.7-47.0); Immature Granulocytes % 2.8 %; Lymphocytes # 0.3 10*3/uL (1.4-4.0); Mean Corpuscular HGB Conc 27.8 GM/DL (32-36); Mean Corpuscular Hemoglobin 19 PG (27-34); Mean Corpuscular Volume 68.2 FL (87-102); Monocytes # 0.8 10*3/uL (0.11-0.8); Monocytes % 5.7 % (1.7-12.7); Neutrophils # 12.7 10*3/uL (1.4-7.4); Neutrophils % 89.2 % (38.7-73.9); Platelet Count 108 T/CUMM (130-400); Red Blood Count 3.27 MC/CUMM (3.8-5.5); Red Cell Distribution Width 19.5 % (9.3-17.3); White Blood Count 14.2 T/CUMM (4-12)
[2018-07-31 03:25] LABS: Hemoglobin 6.2 GM/DL (12.0-16.0)
[2018-07-31 03:26] LABS: Calcium 8.4 MG/DL (8.5-10.1); Potassium 3.3 MMOL/L (3.5-5.1)
[2018-07-31 03:43] LABS: Ferritin 84.9 ng/ml (8-252)
[2018-07-31 04:04] LABS: Calcium 8.1 MG/DL (8.5-10.1); Osmolality,Calculated 269.2 MOS/KG (273-304); Potassium 3.1 MMOL/L (3.5-5.1); VLDL CHOLESTEROL 22.2 MG/DL
[2018-07-31 04:05] LABS: Risk Ratio 5.6; Thyroid Stimulating Hormone 5.3 uIU/ml (0.358-3.74)
[2018-07-31 04:47] LABS: Band Neutrophils 5 % (0-10); Hypochromasia 1+; Lymphocytes 2 % (20-55); Platelet Estimate Decreased; Segmented Neutrophils 89 % (50-85); Total Cells Counted 100
[2018-07-31] MEDS: LEVOTHYROXINE 100 MCG TABLET PO SCH (06:25)
[2018-07-31 07:33] LABS: Apearance,Urine CLEAR (Clear); Bilirubin,Urine Negative (Negative); Blood, Urine Small mg/dL (Negative); Glucose,Urine (UA) Negative (Negative); Ketones,Urine Negative (Negative); Mucus,Urine Occasional /LPF (Occasional); Nitrite,Urine Negative (Negative); Protein,Urine Negative; Squamous Epithelial Cell,Urine Occasional /HPF (0-10); Urine Color Straw (Yellow); Urine Specific Gravity 1.014 (1.001-1.035); Urine Urobilinogen < 2.0 EU/DL (0.2-1.0); WBC,Urine <1 /HPF (0-6)
[2018-07-31] MEDS ORDERED: POTASSIUM CHLORIDE 20 MEQ TABLET PO ONE (09:00)
[2018-07-31] MEDS ORDERED: hydroCHLOROthiazide 25 MG TABLET PO SCH (09:00)
[2018-07-31] MEDS ORDERED: glipiZIDE 5 MG TABLET PO SCH (09:00)
[2018-07-31] MEDS ORDERED: LAMOTRIGINE 50 MG PO SCH (09:00)
[2018-07-31] MEDS ORDERED: FLUoxetine 20 MG CAPSULE PO SCH (09:00)
[2018-07-31] MEDS: INSULIN REGULAR 100 UNIT/ML SUBCUT SCH ×4 (09:26→21:48)
[2018-07-31] MEDS: FERROUS SULFATE 325 MG TABLET PO SCH ×3 (09:28→21:48)
[2018-07-31] MEDS: PANTOPRAZOLE 40 MG TABLET PO SCH (09:28)
[2018-07-31] MEDS: PHENYTOIN ER 100 MG CAPSULE PO SCH ×3 (09:29→21:48)
[2018-07-31] MEDS: ENOXAPARIN 40 MG/0.4 ML SYRINGE SUBCUT SCH (09:29)
[2018-07-31] MEDS: AZITHROMYCIN 250 MG TABLET PO SCH (09:37)
[2018-07-31 13:26] LABS: INR 1.1; PT Patient Result 11.8 SECS
[2018-07-31] MEDS: ACETAMINOPHEN 325 MG TABLET PO PRN (13:28)
[2018-07-31 13:45] LABS: Partial Thromboplastin Time 47.6 SECS (0-40)
[2018-07-31] MEDS ORDERED: TUBERCULIN SKIN TEST 0.1 ML SYRINGE INTRADERM ONE (17:19)
[2018-07-31] MEDS ORDERED: TOPIRAMATE 25 MG TABLET PO SCH (21:00)
[2018-07-31] MEDS ORDERED: clonazePAM 0.5 MG TABLET PO SCH (21:00)
[2018-07-31] MEDS: LOVASTATIN 20 MG TABLET PO SCH (21:48)
[2018-08-01] MEDS: methylPREDNISolone SOD SUC 40 MG/1 ML VIAL IV SCH ×3 (00:37→17:00)
[2018-08-01] MEDS: SODIUM CHLORIDE 0.9% 1,000 ML IV SCH ×3 (03:52→22:24)
[2018-08-01] MEDS: ACETAMINOPHEN 325 MG TABLET PO PRN ×3 (04:44→20:59)
[2018-08-01] MEDS: LEVOTHYROXINE 100 MCG TABLET PO SCH (05:47)
[2018-08-01 06:56] LABS: Albumin 2.8 G/DL (3.4-5.0); Osmolality,Calculated 278.7 MOS/KG (273-304); Potassium 4.4 MMOL/L (3.5-5.1); Total Protein 6.6 G/DL (6.4-8.3)
[2018-08-01] MEDS ORDERED: SODIUM CHLORIDE 0.9% 1,000 ML IV PRN (07:48)
[2018-08-01 08:30] LABS: Basophils % 0.2 % (0.0-0.8); Hematocrit 42.1 VOL% (35.7-47.0); Immature Granulocytes % 0.6 %; Immature Granulocytes Absolute 0.08 #; Lymphocytes # 0.4 10*3/uL (1.4-4.0); Lymphocytes % 3.2 % (21.3-54.2); Mean Corpuscular HGB Conc 29.2 GM/DL (32-36); Mean Corpuscular Hemoglobin 22 PG (27-34); Mean Corpuscular Volume 73.9 FL (87-102); Monocytes # 0.4 10*3/uL (0.11-0.8); Monocytes % 3.1 % (1.7-12.7); Neutrophils # 12.7 10*3/uL (1.4-7.4); Neutrophils % 92.9 % (38.7-73.9); Platelet Count 116 T/CUMM (130-400); Red Cell Distribution Width 23.7 % (9.3-17.3); White Blood Count 13.6 T/CUMM (4-12)
[2018-08-01 08:56] LABS: % Iron Saturation 8.1 % (18-50); Total Protein 7.4 G/DL (6.4-8.3)
[2018-08-01 09:06] LABS: Hemoglobin 12.3 GM/DL (12.0-16.0)
[2018-08-01 09:36] LABS: Band Neutrophils 10 % (0-10); Lymphocytes 1 % (20-55); Segmented Neutrophils 86 % (50-85); Total Cells Counted 100
[2018-08-01 09:37] LABS: Acanthocytes Few; Hypochromasia 1+; Microcytosis 1+; Ovalocytes Few
[2018-08-01] MEDS: cefTRIAXone 1,000 MG in SYRINGE 1 EACH IV SCH (09:50)
[2018-08-01] MEDS: ENOXAPARIN 40 MG/0.4 ML SYRINGE SUBCUT SCH (09:50)
[2018-08-01] MEDS: INSULIN REGULAR 100 UNIT/ML SUBCUT SCH ×4 (09:50→21:01)
[2018-08-01] MEDS: AZITHROMYCIN 250 MG TABLET PO SCH (09:51)
[2018-08-01] MEDS: FERROUS SULFATE 325 MG TABLET PO SCH ×3 (09:51→21:01)
[2018-08-01] MEDS: PHENYTOIN ER 100 MG CAPSULE PO SCH ×3 (09:54→21:01)
[2018-08-01] MEDS: PANTOPRAZOLE 40 MG TABLET PO SCH (09:54)
[2018-08-01 10:16] LABS: Albumin (SPE) 4.4 G/DL (3.2-5.3); Albumin (SPE) Rel % 59.5 %; Alpha 1 (SPE) 0.5 G/DL (0.1-0.4); Alpha 1 (SPE) Rel % 6.9 %; Alpha 2 (SPE) Rel % 14.1 %; Beta (SPE) 0.9 G/DL (0.5-1.1); Beta (SPE) Rel % 12.4 %; Gamma (SPE) 0.5 G/DL (0.7-1.7); Gamma (SPE) Rel % 7.1 %; Total Protein (Chem) 7.4 G/DL (6.4-8.3)
[2018-08-01] MEDS: LISINOPRIL/HCTZ 20-25 MG TABLET PO SCH (11:25)
[2018-08-01 11:27] LABS: Immuno Free Light Chain Kappa 1.23 MG/DL (0.33-1.94); Immuno Free Light Chain Lambda 1.55 MG/DL (0.57-2.63); Immuno Free Light Chain Ratio 0.79 MG/DL (0.26-1.65)
[2018-08-01] MEDS: FLUoxetine 20 MG CAPSULE PO SCH (14:48)
[2018-08-01] MEDS: ZALEPLON 5 MG CAPSULE PO PRN ×2 (21:01)
[2018-08-01] MEDS: LOVASTATIN 20 MG TABLET PO SCH (21:01)
[2018-08-02] MEDS: methylPREDNISolone SOD SUC 40 MG/1 ML VIAL IV SCH ×3 (00:20→17:24)
[2018-08-02 05:06] LABS: Basophils % 0.1 % (0.0-0.8); Calcium 9.5 MG/DL (8.5-10.1); Hemoglobin 11.2 GM/DL (12.0-16.0); Immature Granulocytes Absolute 0.09 #; Lymphocytes # 0.5 10*3/uL (1.4-4.0); Lymphocytes % 5.6 % (21.3-54.2); Mean Corpuscular HGB Conc 28.7 GM/DL (32-36); Mean Corpuscular Hemoglobin 21 PG (27-34); Mean Corpuscular Volume 72.8 FL (87-102); Monocytes # 0.5 10*3/uL (0.11-0.8); Monocytes % 5.2 % (1.7-12.7); NRBC # 0.02 10*3/uL; Neutrophils # 8.2 10*3/uL (1.4-7.4); Neutrophils % 88.1 % (38.7-73.9); Osmolality,Calculated 285.3 MOS/KG (273-304); Platelet Count 102 T/CUMM (130-400); Red Blood Count 5.36 MC/CUMM (3.8-5.5); White Blood Count 9.3 T/CUMM (4-12)
[2018-08-02 05:12] LABS: Hypochromasia Slight; Platelet Estimate Decreased; Polychromasia Few
[2018-08-02] MEDS: LEVOTHYROXINE 100 MCG TABLET PO SCH (05:52)
[2018-08-02] MEDS ORDERED: PROMETHAZINE 25 MG/1 ML VIAL IM ONE (07:00)
[2018-08-02] MEDS ORDERED: MIDAZOLAM 2 MG/2 ML VIAL IV ONE (07:30)
[2018-08-02] MEDS ORDERED: LIDOCAINE 1% 20 ML VIAL MISC INJ ONE (07:30)
[2018-08-02] MEDS ORDERED: LIDOCAINE 2% VISCOUS 100 ML BOTTLE SWISH/SPIT ONE (07:30)
[2018-08-02] MEDS ORDERED: LIDOCAINE 2% 20 ML VIAL RESP TX ONE (07:30)
[2018-08-02] MEDS: INSULIN REGULAR 100 UNIT/ML SUBCUT SCH ×5 (08:30→22:40)
[2018-08-02] MEDS: FERROUS SULFATE 325 MG TABLET PO SCH ×3 (09:59→22:40)
[2018-08-02] MEDS: AZITHROMYCIN 250 MG TABLET PO SCH (10:00)
[2018-08-02] MEDS: LISINOPRIL/HCTZ 20-25 MG TABLET PO SCH (10:01)
[2018-08-02] MEDS: FLUoxetine 20 MG CAPSULE PO SCH (10:02)
[2018-08-02] MEDS: PHENYTOIN ER 100 MG CAPSULE PO SCH ×3 (10:02→22:40)
[2018-08-02] MEDS: PANTOPRAZOLE 40 MG TABLET PO SCH (10:02)
[2018-08-02] MEDS: ENOXAPARIN 40 MG/0.4 ML SYRINGE SUBCUT SCH (10:03)
[2018-08-02] MEDS: cefTRIAXone 1,000 MG in SYRINGE 1 EACH IV SCH (10:11)
[2018-08-02] MEDS ORDERED: MIDAZOLAM 2 MG/2 ML VIAL ONE (10:42)
[2018-08-02] MEDS ORDERED: hydrALAZINE 10 MG TABLET PO PRN (13:06)
[2018-08-02] MEDS ORDERED: PHENOL 1.4% THROAT SPRAY 177 ML BOTTLE PO PRN (13:46)
[2018-08-02] MEDS: amLODIPine 5 MG TABLET PO SCH (14:54)
[2018-08-02] MEDS: SODIUM CHLORIDE 0.9% 1,000 ML IV SCH (15:49)
[2018-08-02] MEDS: NYSTATIN 500,000 UNIT/5 ML UDCUP SWISH/SWAL SCH ×2 (17:23→22:41)
[2018-08-02] MEDS: ACETAMINOPHEN 325 MG TABLET PO PRN (17:24)
[2018-08-02 18:56] LABS: TB2 Ag Minus Result 0.01 IU/mL
[2018-08-02] MEDS: LOVASTATIN 20 MG TABLET PO SCH (22:41)
[2018-08-02] MEDS: NICOTINE 14 MG/24 HR PATCH TRANSDERM PRN (22:41)
[2018-08-03] MEDS: methylPREDNISolone SOD SUC 40 MG/1 ML VIAL IV SCH ×3 (02:02→16:40)
[2018-08-03] MEDS: ACETAMINOPHEN 325 MG TABLET PO PRN ×3 (04:54→20:59)
[2018-08-03 05:06] LABS: Calcium 9.5 MG/DL (8.5-10.1); Osmolality,Calculated 280.5 MOS/KG (273-304); Potassium 3.3 MMOL/L (3.5-5.1)
[2018-08-03 05:24] LABS: Basophils % 0.5 % (0.0-0.8); Hematocrit 43.6 VOL% (35.7-47.0); Hemoglobin 12.2 GM/DL (12.0-16.0); Immature Granulocytes % 2.1 %; Immature Granulocytes Absolute 0.13 #; Lymphocytes # 0.7 10*3/uL (1.4-4.0); Lymphocytes % 11.8 % (21.3-54.2); Mean Corpuscular Hemoglobin 21 PG (27-34); Mean Corpuscular Volume 73.8 FL (87-102); Monocytes # 0.8 10*3/uL (0.11-0.8); Monocytes % 11.9 % (1.7-12.7); Neutrophils # 4.6 10*3/uL (1.4-7.4); Neutrophils % 73.7 % (38.7-73.9); Platelet Count 104 T/CUMM (130-400); Red Blood Count 5.91 MC/CUMM (3.8-5.5); Red Cell Distribution Width 24.7 % (9.3-17.3); White Blood Count 6.3 T/CUMM (4-12)
[2018-08-03 05:52] LABS: Band Neutrophils 2 % (0-10); Hypochromasia 2+; Lymphocytes 13 % (20-55); Segmented Neutrophils 72 % (50-85); Total Cells Counted 100
[2018-08-03 05:53] LABS: Microcytosis 1+; Target Cells Slight
[2018-08-03 05:54] LABS: Platelet Estimate Adequate
[2018-08-03] MEDS: LEVOTHYROXINE 100 MCG TABLET PO SCH (07:02)
[2018-08-03] MEDS: ENOXAPARIN 40 MG/0.4 ML SYRINGE SUBCUT SCH (09:20)
[2018-08-03] MEDS: INSULIN REGULAR 100 UNIT/ML SUBCUT SCH ×4 (09:21→20:57)
[2018-08-03] MEDS: AZITHROMYCIN 250 MG TABLET PO SCH (09:23)
[2018-08-03] MEDS: LISINOPRIL/HCTZ 20-25 MG TABLET PO SCH (09:23)
[2018-08-03] MEDS: FLUoxetine 20 MG CAPSULE PO SCH (09:23)
[2018-08-03] MEDS: FERROUS SULFATE 325 MG TABLET PO SCH ×3 (09:24→20:59)
[2018-08-03] MEDS: amLODIPine 5 MG TABLET PO SCH (09:24)
[2018-08-03] MEDS: NYSTATIN 500,000 UNIT/5 ML UDCUP SWISH/SWAL SCH ×4 (09:24→20:58)
[2018-08-03] MEDS: PHENYTOIN ER 100 MG CAPSULE PO SCH ×3 (09:24→20:58)
[2018-08-03] MEDS: PANTOPRAZOLE 40 MG TABLET PO SCH (09:26)
[2018-08-03] MEDS: cefTRIAXone 1,000 MG in SYRINGE 1 EACH IV SCH (09:32)
[2018-08-03] MEDS: SODIUM CHLORIDE 0.9% 1,000 ML IV SCH (16:38)
[2018-08-03] MEDS: LOVASTATIN 20 MG TABLET PO SCH (20:58)
[2018-08-04] MEDS: methylPREDNISolone SOD SUC 40 MG/1 ML VIAL IV SCH ×3 (00:59→17:23)
[2018-08-04] MEDS: ACETAMINOPHEN 325 MG TABLET PO PRN ×4 (01:11→20:43)
[2018-08-04 04:36] LABS: Calcium 9.6 MG/DL (8.5-10.1); Osmolality,Calculated 279.3 MOS/KG (273-304); Potassium 3.6 MMOL/L (3.5-5.1)
[2018-08-04 04:51] LABS: Basophils % 0.3 % (0.0-0.8); Hematocrit 41.6 VOL% (35.7-47.0); Immature Granulocytes % 2.3 %; Immature Granulocytes Absolute 0.16 #; Lymphocytes # 0.8 10*3/uL (1.4-4.0); Lymphocytes % 11.9 % (21.3-54.2); Mean Corpuscular HGB Conc 28.8 GM/DL (32-36); Mean Corpuscular Hemoglobin 22 PG (27-34); Mean Corpuscular Volume 74.6 FL (87-102); Monocytes # 0.8 10*3/uL (0.11-0.8); Monocytes % 10.9 % (1.7-12.7); Neutrophils # 5.1 10*3/uL (1.4-7.4); Neutrophils % 74.6 % (38.7-73.9); Platelet Count 123 T/CUMM (130-400); Red Blood Count 5.58 MC/CUMM (3.8-5.5); Red Cell Distribution Width 24.9 % (9.3-17.3); White Blood Count 6.9 T/CUMM (4-12)
[2018-08-04 05:18] LABS: Lymphocytes 12 % (20-55); Metamyelocytes 1 %; Segmented Neutrophils 80 % (50-85); Total Cells Counted 100
[2018-08-04 05:19] LABS: Hypochromasia 1+; Microcytosis 1+
[2018-08-04 05:20] LABS: Ovalocytes Slight; Platelet Estimate Adequate
[2018-08-04 05:21] LABS: Anisocytosis 1+
[2018-08-04] MEDS: LEVOTHYROXINE 100 MCG TABLET PO SCH (06:43)
[2018-08-04] MEDS: INSULIN REGULAR 100 UNIT/ML SUBCUT SCH ×4 (07:28→20:46)
[2018-08-04] MEDS: SODIUM CHLORIDE 0.9% 1,000 ML IV SCH (08:47)
[2018-08-04] MEDS: LISINOPRIL/HCTZ 20-25 MG TABLET PO SCH (08:48)
[2018-08-04] MEDS: amLODIPine 5 MG TABLET PO SCH (08:49)
[2018-08-04] MEDS: FERROUS SULFATE 325 MG TABLET PO SCH ×3 (08:49→20:43)
[2018-08-04] MEDS: PANTOPRAZOLE 40 MG TABLET PO SCH (08:50)
[2018-08-04] MEDS: PHENYTOIN ER 100 MG CAPSULE PO SCH ×3 (08:50→20:43)
[2018-08-04] MEDS: FLUoxetine 20 MG CAPSULE PO SCH (08:50)
[2018-08-04] MEDS: AZITHROMYCIN 250 MG TABLET PO SCH (08:50)
[2018-08-04] MEDS: NYSTATIN 500,000 UNIT/5 ML UDCUP SWISH/SWAL SCH ×4 (08:50→20:42)
[2018-08-04] MEDS: cefTRIAXone 1,000 MG in SYRINGE 1 EACH IV SCH (08:51)
[2018-08-04] MEDS: ENOXAPARIN 40 MG/0.4 ML SYRINGE SUBCUT SCH (08:51)
[2018-08-04] MEDS: NICOTINE 14 MG/24 HR PATCH TRANSDERM PRN (09:05)
[2018-08-04] MEDS: LOVASTATIN 20 MG TABLET PO SCH (20:43)
[2018-08-05] MEDS: methylPREDNISolone SOD SUC 40 MG/1 ML VIAL IV SCH ×3 (01:30→16:28)
[2018-08-05] MEDS: SODIUM CHLORIDE 0.9% 1,000 ML IV SCH ×2 (01:51→20:55)
[2018-08-05] MEDS: ACETAMINOPHEN 325 MG TABLET PO PRN ×3 (03:45→20:57)
[2018-08-05 05:04] LABS: Calcium 9.8 MG/DL (8.5-10.1); Osmolality,Calculated 278.5 MOS/KG (273-304); Potassium 3.9 MMOL/L (3.5-5.1)
[2018-08-05 05:14] LABS: Basophils % 0.4 % (0.0-0.8); Eosinophils % 0.1 % (0.00-10.9); Hematocrit 42.3 VOL% (35.7-47.0); Hemoglobin 11.8 GM/DL (12.0-16.0); Immature Granulocytes % 3.2 %; Lymphocytes # 1.3 10*3/uL (1.4-4.0); Lymphocytes % 14.3 % (21.3-54.2); Mean Corpuscular HGB Conc 27.9 GM/DL (32-36); Mean Corpuscular Hemoglobin 21 PG (27-34); Mean Corpuscular Volume 75.7 FL (87-102); Monocytes # 0.8 10*3/uL (0.11-0.8); Monocytes % 8.1 % (1.7-12.7); Neutrophils # 6.9 10*3/uL (1.4-7.4); Neutrophils % 73.9 % (38.7-73.9); Platelet Count 169 T/CUMM (130-400); Red Blood Count 5.59 MC/CUMM (3.8-5.5); Red Cell Distribution Width 25.2 % (9.3-17.3); White Blood Count 9.3 T/CUMM (4-12)
[2018-08-05 05:38] LABS: Atypical Lymphocytes Few; Lymphocytes 20 % (20-55); Segmented Neutrophils 74 % (50-85); Total Cells Counted 100
[2018-08-05 05:39] LABS: Anisocytosis 1+; Hypochromasia 2+; Microcytosis 1+; Ovalocytes Slight; Target Cells Slight
[2018-08-05 05:40] LABS: Platelet Estimate Adequate
[2018-08-05] MEDS: LEVOTHYROXINE 100 MCG TABLET PO SCH (05:44)
[2018-08-05] MEDS: INSULIN REGULAR 100 UNIT/ML SUBCUT SCH ×4 (09:18→20:55)
[2018-08-05] MEDS: ENOXAPARIN 40 MG/0.4 ML SYRINGE SUBCUT SCH (09:18)
[2018-08-05] MEDS: PHENYTOIN ER 100 MG CAPSULE PO SCH ×3 (09:19→20:54)
[2018-08-05] MEDS: NYSTATIN 500,000 UNIT/5 ML UDCUP SWISH/SWAL SCH ×4 (09:19→20:54)
[2018-08-05] MEDS: NICOTINE 14 MG/24 HR PATCH TRANSDERM PRN (09:19)
[2018-08-05] MEDS: amLODIPine 5 MG TABLET PO SCH (09:19)
[2018-08-05] MEDS: PANTOPRAZOLE 40 MG TABLET PO SCH (09:19)
[2018-08-05] MEDS: FERROUS SULFATE 325 MG TABLET PO SCH ×3 (09:19→20:54)
[2018-08-05] MEDS: FLUoxetine 20 MG CAPSULE PO SCH (09:19)
[2018-08-05] MEDS: LISINOPRIL/HCTZ 20-25 MG TABLET PO SCH (09:19)
[2018-08-05] MEDS: cefTRIAXone 1,000 MG in SYRINGE 1 EACH IV SCH (10:10)
[2018-08-05] MEDS: LOVASTATIN 20 MG TABLET PO SCH (20:54)
[2018-08-06] MEDS: methylPREDNISolone SOD SUC 40 MG/1 ML VIAL IV SCH ×2 (00:32→08:34)
[2018-08-06 05:23] LABS: Calcium 9.6 MG/DL (8.5-10.1); Osmolality,Calculated 278.7 MOS/KG (273-304); Potassium 3.9 MMOL/L (3.5-5.1)
[2018-08-06 05:35] LABS: Hypochromasia 1+; Microcytosis 1+; Platelet Estimate Adequate; Polychromasia Few
[2018-08-06 06:02] LABS: Basophils % 0.4 % (0.0-0.8); Eosinophils % 0.1 % (0.00-10.9); Hematocrit 43.7 VOL% (35.7-47.0); Immature Granulocytes % 4.3 %; Lymphocytes # 1.1 10*3/uL (1.4-4.0); Lymphocytes % 15.7 % (21.3-54.2); Mean Corpuscular HGB Conc 27.7 GM/DL (32-36); Mean Corpuscular Hemoglobin 21 PG (27-34); Mean Corpuscular Volume 75.2 FL (87-102); Monocytes # 0.6 10*3/uL (0.11-0.8); Monocytes % 8.2 % (1.7-12.7); Neutrophils % 71.3 % (38.7-73.9); Platelet Count 175 T/CUMM (130-400); Red Blood Count 5.81 MC/CUMM (3.8-5.5); Red Cell Distribution Width 25.8 % (9.3-17.3)
[2018-08-06 06:04] LABS: Hemoglobin 12.1 GM/DL (12.0-16.0)
[2018-08-06 06:08] LABS: Lymphocytes 10 % (20-55); Segmented Neutrophils 83 % (50-85); Total Cells Counted 100
[2018-08-06] MEDS: INSULIN REGULAR 100 UNIT/ML SUBCUT SCH ×2 (08:00→11:20)
[2018-08-06] MEDS: LISINOPRIL/HCTZ 20-25 MG TABLET PO SCH (08:32)
[2018-08-06] MEDS: PHENYTOIN ER 100 MG CAPSULE PO SCH ×2 (08:32→14:51)
[2018-08-06] MEDS: amLODIPine 5 MG TABLET PO SCH (08:33)
[2018-08-06] MEDS: cefTRIAXone 1,000 MG in SYRINGE 1 EACH IV SCH (08:39)
[2018-08-06] MEDS: FERROUS SULFATE 325 MG TABLET PO SCH ×2 (08:46→14:51)
[2018-08-06] MEDS: NYSTATIN 500,000 UNIT/5 ML UDCUP SWISH/SWAL SCH ×2 (08:46→12:19)
[2018-08-06] MEDS: LEVOTHYROXINE 100 MCG TABLET PO SCH (08:46)
[2018-08-06] MEDS: FLUoxetine 20 MG CAPSULE PO SCH (08:47)
[2018-08-06] MEDS: PANTOPRAZOLE 40 MG TABLET PO SCH (08:47)
[2018-08-06] MEDS ORDERED: LIDOCAINE 100 MG/5 ML SYRINGE ONE (10:00)
[2018-08-06] MEDS ORDERED: PROPOFOL 200 MG/20 ML VIAL IV ONE (10:00)
[2018-08-06 11:42] VITALS: BP 137/88
[2018-08-07] MEDS ORDERED: predniSONE 20 MG TABLET PO SCH (09:00)
== END 2018-08-06 17:10 | disposition home or self-care (01) | DRG 190 ==
LOC: N.2E 22:00 → SUATTDRO 22:00
PROVIDERS: ADMIT Internal Medicine; ATTEND Internal Medicine